=== PATIENT | female | born 1940 | race Caucasian/White ===

== ENCOUNTER 2017-06-11 11:02 | Observation (INO) ==
--- NOTE | 2017-06-11 11:29 | Emergency Department Report ---
General Adult HPI - General Chief complaint: Medical Emergency Stated complaint: High BP Time Seen by Provider: 06/11/17 11:28 Source: patient Mode of arrival: ambulatory - History of Present Illness HPI narrative: 77-year-old female presents to ER with complaint of elevated blood pressures. Patient states this morning she was at the store and could not remember why she had gone in there. The store called the police and follow patient home. Patient says when she arrived home she had pressures over 200/100. Patient was seen in our ER on 06-09-17 for elevated blood pressure. Patient says she was at the dentist that day and was schedule to have a tooth implant. Her BP was so elevated the dentist would not do implant and told her to go to the ER. Patient went home for a while and monitored her BP and then came to the ED. Patient was evaluated with EKG and laboratory. Patient was given 2 dose of labetalol IV which lower her pressure. She was sent home with Rx. for labetalol and has been taking it as directed. Patient denies fever, chills, SOB, cough, CP, nausea, vomiting, abdominal pain, headache, blurred vision, paresthesia, unilateral weakness or ataxia. Cisternal accompanies patient did not notice any facial droop or aphasia. Patient does not know why she is on Sotalol. Patient states she does not have a cutter gas. Onset (ago): hour(s) - Related Data Home Medications Medication Instructions Recorded Confirmed Calcium Carbonate [Calcium] 500 mg PO BID 06/09/17 06/11/17 Cyanocobalamin (Vitamin B-12) 2,500 mg SL DAILY 06/09/17 06/11/17 [Vitamin B-12] Ferrous Sulfate [Iron] 325 mg PO DAILY 06/09/17 06/11/17 Hydrocortisone [Hydrocortisone] 20 mg PO BID 06/09/17 06/11/17 Sotalol [Betapace] 80 mg PO BID 06/09/17 06/11/17 Alendronate Sodium [Alendronate 70 mg PO WEEKLY 06/11/17 06/11/17 Sodium] Fludrocortisone [Florinef] 0.05 mg PO DAILY 06/11/17 06/11/17 Levothyroxine Tab [Synthroid] 112 mcg PO ACB 06/11/17 06/11/17 Previous Rx's Medication Instructions Recorded Labetalol [Normodyne] 100 mg PO BID #60 tab 06/09/17 Allergies Allergy/AdvReac Type Severity Reaction Status Date / Time No Known Allergies Allergy Verified 06/11/17 11:26 Review of Systems All systems: reviewed and negative except as stated Neurological: Reports: as per HPI, confusion PFSH Patient Stated Medical History Other HEENT Yes: GLASSES Hypertension Yes Clinic Medical History (Last Reviewed 03/14/17 @ 08:34 by Montez Emerson MD) Osteoporosis (Chronic Medical ~2014) Adrenal insufficiency (Chronic Medical ~1976) Hypothyroidism (Chronic Medical ~1976) Slightly too much thyroid hormone replacement. Obesity (BMI 30-39.9) (Chronic Medical) Little weight loss. Medical History Updates: Clarence's disease Surgical History: Broke both arms Family History: Family History (Last Reviewed 03/14/17 @ 08:34 by Montez Emerson MD) Mother Lupus Sister Cancer [place]'s disease - Social History Smoking status: Never smoker Household members: spouse Physical Exam - General General appearance: alert, in no apparent distress - Normal Exams: Head:: Normocephalic without trauma Eyes:: Pupils are PERRLA w/ EOMI, No scleral icterus ENMT:: No facial trauma, nasal exudates, pharyngeal erythema Neck:: Full range of motion, without adenopathy, JVD Chest/Respirations:: Clear all hines, with good airflow, and symmetry bilaterally Cardiovascular:: Regular rate and rhythm Abdomen:: Bowel sounds positive, soft, non-tender, non-distended, no hepatosplenomegaly Musculoskeletal:: No tenderness, or deformity noted, all extremities Integumentary:: No rashes Neurological:: Patient is alert, and oriented, cranial nerves, motor/sensory/ cerebellar, exams w/o gross deficits, to observation Psychiatric:: Patient exhibits, appropriate attention, emotion and affect - ENT ENT exam: Present: mucous membranes moist - Neck Neck exam: Present: trachea midline - Skin Skin exam: Present: warm, dry - Expanded Neurological Exam Motor strength - LUE: 5/5 Motor strength - RUE: 5/5 Motor strength - LLE: 5/5 Motor strength - RLE: 5/5 Upper motor neuron exam: Absent bilaterally: pronator drift Course - Consultations Consultation #1: I discussed patient's HPI, PMH, labs, VS, EKG, head CT, exam finding and treatment in the ED with Dr. Thony waggoner's service. Dr. Carter will admit patient observation status. Vital Signs Temperature 99.3 F 06/11/17 11:15 Pulse Rate 68 06/11/17 11:15 Respiratory Rate 16 06/11/17 11:15 Blood Pressure 190/77 H 06/11/17 11:15 Pulse Oximetry 96 06/11/17 11:15 Temperature 99.0 F 06/12/17 07:16 Pulse Rate 66 06/12/17 07:42 Respiratory Rate 18 06/12/17 07:16 Blood Pressure 139/67 06/12/17 07:16 Pulse Oximetry 94 06/12/17 07:16 Medical Decision Making - [facility] Narrative Medical decision making narrative: Patient's labs were unremarkable on 06-09-16. Magnesium and TSH unremarkable today. Patient's BP has improved with 20mg of hydralazine IV. I discussed with patient that I felt she needed to be admitted for observation due to hypertension urgency with mental status changes. Patient agreed with plan of care. - Differential Diagnosis hypertension urgency, TIA, CVA, intercranial hemorrhage - Medical Records Medical records reviewed: Yes: I reviewed the patient's medical records. - Lab Data Result diagrams: 06/12/17 04:34 Lab Results 06/11/17 Range/Units 12:25 Magnesium 1.9 (1.6-2.3) MG/DL TSH 1.49 (0.47-4.68) MIU/L - Radiology Data Radiology results reviewed: Yes: I reviewed the patient's radiology results. CT head: no acute intracranial findings (V-RAD) - EKG Data EKG #1 EKG attestation: Yes: I reviewed and interpreted this EKG. Disposition Clinical Impression: Hypertensive urgency Mental status change Qualifiers: Altered mental status type: disorientation Qualified Code(s): R41.0 - Disorientation, unspecified Disposition: 02 To [facility] Condition: Improved - Seen By: midlevel
[2017-06-11] MEDS ORDERED: HYDRALAZINE 20 MG/ML INJECTION IVP ONE ×2 (11:52→13:11)
[2017-06-11 15:04] VITALS: BMI 29.3
--- NOTE | 2017-06-11 15:40 | History & Physical Report ---
History of Present Illness Date: 06/12/17 Chief complaint: High BP HPI: Ivon Schulz is a 77 y/o woman who has been seen in the ED twice since 06/09/17 for elevated BPs. On the , her BP on arrival was 230/103, HR 71. Labs were essentially unremarkable, with exception of minimally elevated Na (146) and bilirubin (1.3). In the ED on 06/09, she received Labetalol 20 mg IV x2 doses, which lowered her BP to a safe level and she was discharged home with Rx for Labetalol 100 mg BID. On 06/11/17, she again had high BPs, this time with associated mental status changes. She went to [employer] and forgot why she was there. She was also supposed to run to [employer] for her but couldn't recall what she needed. Police dept was notified and they followed her home for safety. On arrival, her checked her BP and it was approx 197/127. He did not notice any facial drooping, unilateral weakness, slurred speech, or other signs of a stroke. She denies any chest pain, dyspnea, diaphoresis, nausea , visual changes, paresthesias, or headaches during these times or currently. She also denies any recent illnesses such as fever, cough/congestion, abdominal upset or pain, v/d/c, or dysuria. She had urinary frequency b/c she drinks a lot of water. She admits currently to feeling very chilled and cold and is shaking despite being covered with several blankets. She sees Dr. Emerson for Clarence's and for hypothyroidism, and states that he recently decreased her Synthroid dose. Her took her to the ED again on 06/11, and initial BP was 207/86. She received hydralazine 10 mg x2 and 5 mg x1 and BP got down as low as 143/65. Labs on 06/11 included a TSH, which was normal at 1.49 and a magnesium, also normal at 1.9. Head CT was reportedly negative. EKG showed NSR. Ivon was admitted to observation status for hypertensive urgency. Review of Systems All systems PM: 10-point ROS was reviewed, no additional remarkable complaints except - Constitutional Constitutional: Present: as per HPI - EENMT Eyes: Present: as per HPI, requires corrective lenses Nose: Present: as per HPI Mouth/Throat: Absent: changes in swallowing - Cardiovascular Cardiovascular: Present: as per HPI. Absent: chest pain, palpitations, dyspnea on exertion, edema Rhythm: Absent: abnormal rhythm Vascular: Absent: pedal edema, unilateral swelling - Respiratory Respiratory: Present: as per HPI - Gastrointestinal Gastrointestinal: Present: as per HPI - Genitourinary Genitourinary: Present: urinary frequency (chronic - pt states she drinks a lot of water). Absent: dysuria - Musculoskeletal Musculoskeletal: Absent: muscle weakness - Integumentary/Breasts Integumentary: Present: wounds (had a spot on her lower back drained by Dr. Porter - healing nicely) - Neurological Neurological: Present: as per HPI - Psychiatric Psychiatric: Absent: anxiety, depression - Endocrine Endocrine: Present: as per HPI - Hematologic/Lymphatic Hematologic/Lymphatic: Absent: easy bleeding, easy bruising Past Medical History PAF in 2014 - not anticoagulated (Echo in 2014: EF 63%, mild MR, mild TR, moderate PH) HTN Moderate pulmonary HTN Steatohepatitis Gladwyne's disease Hypothyroidism History of Obesity (BMI 30-39.9) Osteoporosis Surgical History: breast biopsy. tubal ligation Family History: Family History Mother Lupus Sister Cancer Clarence's disease Family History Updates: Mother of complications from lupus at age 73. Her father of old age around 77 years. Her identical twin sister and only sister also had Gladwyne's disease. She from bone cancer at age 70. - Social History Smoking status: Never smoker Substance use type: does not use Alcohol intake frequency: does not drink Household members: spouse Social history: PCP: Dr. Porter Endocrine: Dr. Emerson Medications Home Medications Medication Instructions Recorded Confirmed Type Calcium Carbonate [Calcium] 500 mg PO BID 06/09/17 06/11/17 History Cyanocobalamin (Vitamin B-12) 2,500 mg SL DAILY 06/09/17 06/11/17 History [Vitamin B-12] Ferrous Sulfate [Iron] 325 mg PO DAILY 06/09/17 06/11/17 History Hydrocortisone [Hydrocortisone] 20 mg PO BID 06/09/17 06/11/17 History Sotalol [Betapace] 80 mg PO BID 06/09/17 06/11/17 History Alendronate Sodium [Alendronate 70 mg PO WEEKLY 06/11/17 06/11/17 History Sodium] Fludrocortisone [Florinef] 0.05 mg PO DAILY 06/11/17 06/11/17 History Levothyroxine Tab [Synthroid] 112 mcg PO ACB 06/11/17 06/11/17 History Allergies Allergy/AdvReac Type Severity Reaction Status Date / Time No Known Allergies Allergy Verified 06/11/17 11:26 Exam Vital Signs: Temperature 98.4 F 06/11/17 15:01 Pulse Rate 88 06/11/17 15:01 Respiratory Rate 18 06/11/17 15:01 Blood Pressure 169/75 H 06/11/17 15:01 Pulse Oximetry 97 06/11/17 15:01 Height/Weight/BMI: Height 1.65 m Weight 80.1 kg Body Mass Index 29.3 - Constitutional Present: no acute distress, well nourished, well developed - Routine HEENT Exam Head: Present: normocephalic Eye: Present: EOMI, PERRL. Absent: conjunctival icterus, scleral injection ENT: Present: mucous membranes moist, oropharynx clear - Routine Neck Exam Present: supple. Absent: lymphadenopathy - Routine Respiratory Exam Present: CTA bilaterally - Routine Cardiovascular Exam Present: RRR, S1, S2 - Routine Abdominal Exam Present: soft, normoactive bowel sounds, non distended, non tender - Routine Extremities Exam Present: no edema, pulses intact, normal capillary refill. Absent: calf tenderness - Routine Back/Spine/Pelvis Exam Back/Spine: Present: full ROM - Routine Skin Exam Present: intact, dry, warm, wounds (healing wound to lower back), ecchymosis ( left forearm from recent lab stick) - Routine Neurological Exam Present: alert, oriented X3, CN II-XII intact, moving all extremities, vision grossly intact, hearing grossly intact, normal speech. 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 Dr. Bhandari attending. Start telemetry. Start Lisinopril 10 mg daily. Hydralazine 10 mg IV PRN for BP >180/90. Continue Sotalol. Continue hydrocortisone and fludrocortisone for Gladwyne's. Fludrocortisone likely contributor to HTN but d/t Gladwyne's disease we cannot discontinue. Continue home meds. Patient does not see a customer resource specialist on a regular basis. Labs from 06/09 and again today were stable. Advanced directives: Spouse/son are listed as DPOAs; +living will; full code. DVT Prophylaxis: SCD's Resuscitation Status: Full Code - Physician Narrative Physician: Cuca Bhandari MD Narrative: Date: 06/11/17 Time: 1814 Thony MARTINEZ Ms. Schulz was interviewed and examined by me. She still has a bit of word finding difficulty. What she says without slurring but she is having trouble communicating what she wants to say. I asked her if she just couldn't remember what the words were or if she's unable to speak those words and she says she's having trouble remembering what the words are. There is no facial drooping. She has equal strength in the bilateral upper and lower extremities. Finger to nose is accurate. Unable to understand instructions to touch each finger to thumb, she does all four fingers at once. Heel to rosen okay but slow. No visual deficits. She denies any shortness of breath, cough or sputum production. She denies chest pain or pressure. She denies palpitations. She has no headache. She denies nausea or vomiting. She denies abdominal pain. She reports no problems and swallowing. She reports her bowels are moving fine and she is urinating fine in fact frequently states she drinks a lot of water. She denies problems with lower extremity edema. PE: Gen: alert and oriented. NAD Skin: warm and dry HEENT: NC/AT PERRL, EOMI, Sclera, lids and conjunctiva wnl. MMM. OP clear. Neck: No JVD, Carotids 2+ without bruits Lungs: clear. No rales, rhonchi or wheezes CV: regular. 2/6 murmur Abd: soft. +BS. NT/ND MS: No edema. Good strength and ROM Neuro: No focal deficits except as noted above. Assessment and plan: 1. Possible TIA versus stroke -MRI tomorrow -carotid Doppler -echocardiogram -telemetry -aspirin and Statin -consult speech and physical therapy -Neuro checks 2. History of paroxysmal atrial fibrillation -on sotalol -she is an sinus rhythm but this is certainly concerning when there are symptoms of possible stroke or TIA. -He may have to consider anticoagulation but certainly not yet with the acute episode. -Place her on telemetry 3. Hypertension with hypertensive urgency -follow blood pressures 4. 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 Prophylaxis -SCD's I have reviewed her labs, notes and imaging. I have discussed patient with Addie SALAZAR and agree with assessment and plan with the above changes. Hospital Course Summary Disclaimer: The visit summary below is not to be considered part of the above Progress Note. Hospital Course: 06/11/17 Admit, observation status for hypertensive urgency. Dr. Bhandari attending. Start telemetry. Start Lisinopril 10 mg daily. Hydralazine 10 mg IV PRN for BP >180/90. Continue Sotalol. Continue hydrocortisone and fludrocortisone for Gladwyne's. Fludrocortisone likely contributor to HTN but d/t Gladwyne's disease we cannot discontinue. Continue home meds. Patient does not see a customer resource specialist on a regular basis. Labs from 06/09 and again today were stable. Advanced directives: Spouse/son are listed as DPOAs; +living will; full code.
[2017-06-11] MEDS ORDERED: HYDRALAZINE 20 MG/ML INJECTION IVP PRN (15:45)
[2017-06-11] MEDS: LISINOPRIL 10 MG TABLET PO SCH (16:42)
[2017-06-11] MEDS: HYDROCORTISONE 20 MG PO SCH ×2 (18:31→19:57)
[2017-06-11] MEDS: SOTALOL 80 MG PO SCH (19:57)
[2017-06-11] MEDS: CALCIUM CARBONATE 500 MG PO SCH (22:05)
[2017-06-12] MEDS: SOTALOL 80 MG PO SCH ×2 (05:44→21:08)
[2017-06-12] MEDS: LEVOTHYROXINE 112 MCG PO SCH (05:44)
[2017-06-12] MEDS: FERROUS SULFATE 324 MG PO SCH (08:37)
[2017-06-12] MEDS: HYDROCORTISONE 20 MG PO SCH ×2 (08:38→18:36)
[2017-06-12] MEDS: CALCIUM CARBONATE 500 MG PO SCH ×2 (08:38→21:09)
[2017-06-12] MEDS: LISINOPRIL 10 MG TABLET PO SCH (08:39)
[2017-06-12] MEDS: FLUDROCORTISONE 0.1 MG PO SCH (08:39)
[2017-06-12] MEDS: VITAMIN B12 1000 MCG PO SCH (08:40)
[2017-06-12] MEDS ORDERED: CYANOCOBALAMIN (B-12) 500mcg TABLET PO SCH (09:00)
--- NOTE | 2017-06-12 09:18 | CT Scan Report ---
Indication: confusion PROCEDURE: CT head/brain wo con: Encounter: Initial Comparison: May 31, 2013 Technique: Axial CT images through the head were performed without contrast. Iterative Reconstruction dose reducing technique was utilized. FINDINGS: Mild atrophy. The ventricles are of normal size, shape, and contour for the patient's age. There are scattered areas of low attenuation in the white matter which most likely represent changes from chronic microvascular ischemia. The brainstem, cerebellum, and cerebral hemispheres otherwise have a normal morphology and CT attenuation. There is no evidence of midline displacement. No hemorrhage, signs of acute territorial stroke, mass effect, mass lesions, or edema is evident. The visualized portions of the skull base, midface, and calvarium demonstrate no abnormality. Mild sinus disease. The tympanic and mastoid cavities appear normal. IMPRESSION: No acute intracranial abnormality or hemorrhage. There is a preliminary report by [facility]. .
--- NOTE | 2017-06-12 10:29 | Progress Note ---
- Date 06/12/17 Subjective: Ivon Schulz is a 77 y/o woman who has been seen in the ED twice since 06/09/17 for elevated BPs. On the , her BP on arrival was 230/103, HR 71. Labs were essentially unremarkable, with exception of minimally elevated Na (146) and bilirubin (1.3). In the ED on 06/09, she received Labetalol 20 mg IV x2 doses, which lowered her BP to a safe level and she was discharged home with Rx for Labetalol 100 mg BID. On 06/11/17, she again had high BPs, this time with associated mental status changes. She went to [employer] and forgot why she was there. She was also supposed to run to [employer] for her but couldn't recall what she needed. Police dept was notified and they followed her home for safety. On arrival, her checked her BP and it was approx 197/127. He did not notice any facial drooping, unilateral weakness, slurred speech, or other signs of a stroke. She denies any chest pain, dyspnea, diaphoresis, nausea , visual changes, paresthesias, or headaches during these times or currently. She also denies any recent illnesses such as fever, cough/congestion, abdominal upset or pain, v/d/c, or dysuria. She had urinary frequency b/c she drinks a lot of water. She admits currently to feeling very chilled and cold and is shaking despite being covered with several blankets. She sees Dr. Emerson for Clarence's and for hypothyroidism, and states that he recently decreased her Synthroid dose. Her took her to the ED again on 06/11, and initial BP was 207/86. She received hydralazine 10 mg x2 and 5 mg x1 and BP got down as low as 143/65. Labs on 06/11 included a TSH, which was normal at 1.49 and a magnesium, also normal at 1.9. Head CT was reportedly negative. EKG showed NSR. Ivon was admitted to observation status for hypertensive urgency. There is no facial drooping. She has equal strength in the bilateral upper and lower extremities. Finger to nose is accurate. Unable to understand instructions to touch each finger to thumb, she does all four fingers at once. Heel to rosen okay but slow. No visual deficits. She denies any shortness of breath, cough or sputum production. She denies chest pain or pressure. She denies palpitations. She has no headache. She denies nausea or vomiting. She denies abdominal pain. She reports no problems and swallowing. She reports her bowels are moving fine and she is urinating fine in fact frequently states she drinks a lot of water. She denies problems with lower extremity edema. This morning she is doing a little better. She is able to do each finger to thumb bilaterally. She can recall what they're supposed to do to her tooth in the near future which she couldn't recall yesterday. She did have a little trouble remembering its May but had no problem with the date or year. She did have nausea with vomiting last evening. She does not feel nauseated at present. Her blood pressures are reasonable today. She denies headache, lightheadedness or dizziness. She denies any visual changes. She denies being short of breath. No cough or sputum production. She denies chest pain or pressure. She denies palpitations. She has not had a bowel movement since Tuesday. She is passing gas. She urinating without difficulty. Objective Vital signs: Temperature 99.0 F 06/12/17 07:16 Pulse Rate 66 06/12/17 07:42 Respiratory Rate 18 06/12/17 07:16 Blood Pressure 139/67 06/12/17 07:16 Pulse Oximetry 94 06/12/17 07:16 Height/Weight/BMI: Height 1.65 m Weight 79.9 kg Body Mass Index 29.3 Comments: Gen: alert and oriented. NAD Skin: warm and dry HEENT: NC/AT PERRL, EOMI, Sclera, lids and conjunctiva wnl. MMM. OP clear. Neck: No JVD, Carotids 2+ without bruits Lungs: clear. No rales, rhonchi or wheezes CV: regular. 2/6 murmur. Abd: soft. +BS. NT/ND MS: No edema. Good strength and ROM Neuro: No focal deficits Results - Labs CBC & Chem 7: 06/12/17 04:34 Assessment and Plan (1) Hypertensive urgency Current visit: Yes Status: Acute Assessment and Plan: Assessment and plan: 1. Possible TIA versus stroke -MRI ordered for today -carotid Doppler in am -echocardiogram in am -telemetry -aspirin and Statin -consult speech and physical therapy -Improved symptoms today 2. History of paroxysmal atrial fibrillation -on sotalol -she is an sinus rhythm but this is certainly concerning when there are symptoms of possible stroke or TIA. -He may have to consider anticoagulation but certainly not yet with the acute episode. -Place her on telemetry 3. Hypertension with hypertensive urgency -follow blood pressures 4. [place]'s disease -on fludrocortisone and hydrocortisone likely attributing to her hypertension 5. N/V -Add PPI -add antiemetics 6. Hypokalemia -Replace and recheck 7. Prophylaxis -SCD's - Physician Narrative Narrative: Date: 06/12/17 Time: 1025 Hospital Course Summary Disclaimer: The visit summary below is not to be considered part of the above Progress Note. Hospital Course: 06/11/17 Admit, observation status for hypertensive urgency. Dr. Bhandari attending. Start telemetry. Start Lisinopril 10 mg daily. Hydralazine 10 mg IV PRN for BP >180/90. Continue Sotalol. Continue hydrocortisone and fludrocortisone for Clarence's. Fludrocortisone likely contributor to HTN but d/t Estill's disease we cannot discontinue. Continue home meds. Patient does not see a reed dipper on a regular basis. Labs from 06/09 and again today were stable. Advanced directives: Spouse/son are listed as DPOAs; +living will; full code.
[2017-06-12] MEDS: HYDROCORTISONE 20 MG TABLET PO SCH (21:09)
--- NOTE | 2017-06-12 22:14 | Magnetic Resonance Report ---
Indication: TIA/STROKE PROCEDURE: MR head/brain wo con: Encounter: Initial Comparisons: Head CT dated June 11, 2017 and brain MRI dated June 11, 2013 Technique: Multiplanar, multisequence, MR imaging of the head without contrast was acquired. FINDINGS: Mild generalized atrophy. The ventricles are stable. Significant interval progression in periventricular white matter disease since the comparison MRI, most pronounced in the periatrial parietal white matter bilaterally. The brain stem, cerebellum, and cerebral hemispheres otherwise have a normal morphologic appearance as well as MR signal intensity on all pulse sequences. There are no areas of restricted diffusion on diffusion weighted imaging to suggest an acute infarct. There is no evidence of an intracranial mass lesion, intracranial hemorrhage, or hydrocephalus. The visualized portions of the orbits, calvarium, paranasal sinuses, and skull base demonstrate no significant abnormality. IMPRESSION: No acute intracranial hemorrhage or infarct. 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 .
[2017-06-13] MEDS: LEVOTHYROXINE 112 MCG PO SCH (06:36)
[2017-06-13] MEDS: SOTALOL 80 MG PO SCH (06:36)
[2017-06-13] MEDS: FERROUS SULFATE 324 MG PO SCH (09:42)
[2017-06-13] MEDS: CALCIUM CARBONATE 500 MG PO SCH (09:42)
[2017-06-13] MEDS: FLUDROCORTISONE 0.1 MG PO SCH (09:45)
[2017-06-13] MEDS: HYDROCORTISONE 20 MG TABLET PO SCH (09:45)
[2017-06-13] MEDS: VITAMIN B12 1000 MCG PO SCH (09:48)
[2017-06-13] MEDS: LISINOPRIL 10 MG TABLET PO SCH (09:53)
--- NOTE | 2017-06-13 14:33 | Ultrasound Report ---
EXAM: US carotid doppler BI LOCATION OF DICTATION: [place] HISTORY: TIA/Stroke symptoms COMPARISON: No prior studies available for comparison. TECHNIQUE: Multiple real-time grayscale sonographic images were obtained of the carotid arteries bilaterally with color flow and spectral analysis. Peak systolic velocities are measured in centimeters per second. FINDINGS: Velocities are as follows: RIGHT CAROTID SYSTEM: CCA: 108 cm/S Proximal ICA: 91 cm/S Mid ICA: 106 cm/S Distal ICA: 98.8 cm/S ECA: 101 cm/S Vertebral: Antegrade ICA/CCA ratio: 1.0 LEFT CAROTID SYSTEM: CCA: 113 cm/S Proximal ICA: 162 cm/S Mid ICA: 130 cm/S Distal ICA: 136 cm/S ECA: 114 cm/S Vertebral: Antegrade ICA/CCA ratio: 1.4 Mild atherosclerotic disease bilaterally. IMPRESSION: Mild left atherosclerotic disease bilaterally with slightly increased velocity in the left internal carotid artery correlating with 50-69% narrowing. Follow-up carotid ultrasound one year could be obtained to reevaluate. .
[2017-06-13 14:59] VITALS: BP 141/68; RESP 17; TEMP 95.7; O2SAT 95
--- NOTE | 2017-06-13 15:28 | Discharge Summary ---
Discharge Information Date of admission: 06/11/17 14:43 Anticipated date of discharge: 06/13/17 Attending Physician: Simi Foss MD Primary care physician: Leslie Porter, DO - Discharge Diagnosis (1) Hypertensive urgency Status: Resolved Possible TIA History of paroxysmal atrial fibrillation Carotid artery disease Hypertension with hypertensive urgency Wayland's disease N/V - resolved Hypokalemia - resolved - Laboratory Labs: 06/13/17 03:59 06/13/17 03:59 - Radiology Radiology: HEAD CT FINDINGS: Mild atrophy. The ventricles are of normal size, shape, and contour for the patient's age. There are scattered areas of low attenuation in the white matter which most likely represent changes from chronic microvascular ischemia. The brainstem, cerebellum, and cerebral hemispheres otherwise have a normal morphology and CT attenuation. There is no evidence of midline displacement. No hemorrhage, signs of acute territorial stroke, mass effect, mass lesions, or edema is evident. The visualized portions of the skull base, midface, and calvarium demonstrate no abnormality. Mild sinus disease. The tympanic and mastoid cavities appear normal. IMPRESSION: No acute intracranial abnormality or hemorrhage. BRAIN MRI FINDINGS: Mild generalized atrophy. The ventricles are stable. Significant interval progression in periventricular white matter disease since the comparison MRI, most pronounced in the periatrial parietal white matter bilaterally. The brain stem, cerebellum, and cerebral hemispheres otherwise have a normal morphologic appearance as well as MR signal intensity on all pulse sequences. There are no areas of restricted diffusion on diffusion weighted imaging to suggest an acute infarct. There is no evidence of an intracranial mass lesion, intracranial hemorrhage, or hydrocephalus. The visualized portions of the orbits, calvarium, paranasal sinuses, and skull base demonstrate no significant abnormality. IMPRESSION: No acute intracranial hemorrhage or infarct. 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 CAROTID DOPPLER IMPRESSION: Mild left atherosclerotic disease bilaterally with slightly Increased velocity in the left internal carotid artery correlating with 50-69% narrowing. Follow-up carotid ultrasound one year could be obtained to reevaluate. History of Present Illness HPI: Ivon Schulz is a 77 y/o woman who has been seen in the ED twice since 06/09/17 for elevated BPs. On the , her BP on arrival was 230/103, HR 71. Labs were essentially unremarkable, with exception of minimally elevated Na (146) and bilirubin (1.3). In the ED on 06/09, she received Labetalol 20 mg IV x2 doses, which lowered her BP to a safe level and she was discharged home with Rx for Labetalol 100 mg BID. On 06/11/17, she again had high BPs, this time with associated mental status changes. She went to [facility] and forgot why she was there. She was also supposed to run to [facility] for her but couldn't recall what she needed. Police dept was notified and they followed her home for safety. On arrival, her checked her BP and it was approx 197/127. He did not notice any facial drooping, unilateral weakness, slurred speech, or other signs of a stroke. She denies any chest pain, dyspnea, diaphoresis, nausea , visual changes, paresthesias, or headaches during these times or currently. She also denies any recent illnesses such as fever, cough/congestion, abdominal upset or pain, v/d/c, or dysuria. She had urinary frequency b/c she drinks a lot of water. She admits currently to feeling very chilled and cold and is shaking despite being covered with several blankets. She sees Dr. Emerson for Wayland's and for hypothyroidism, and states that he recently decreased her Synthroid dose. Her took her to the ED again on 06/11, and initial BP was 207/86. She received hydralazine 10 mg x2 and 5 mg x1 and BP got down as low as 143/65. Labs on 06/11 included a TSH, which was normal at 1.49 and a magnesium, also normal at 1.9. Head CT was reportedly negative. EKG showed NSR. Ivon was admitted to observation status for hypertensive urgency. Objective Vital signs: Temperature 95.7 F L 06/13/17 14:56 Pulse Rate 70 06/13/17 14:56 Respiratory Rate 17 06/13/17 14:56 Blood Pressure 141/68 H 06/13/17 14:56 Pulse Oximetry 95 06/13/17 14:56 Height/Weight/BMI: Height 1.65 m Weight 80 kg Body Mass Index 29.3 - Constitutional Present: no acute distress, well nourished, well developed - Routine HEENT Exam Head: Present: normocephalic Eye: Present: PERRL. Absent: conjunctival icterus, scleral injection ENT: Present: mucous membranes moist - Routine Respiratory Exam Present: CTA bilaterally - Routine Cardiovascular Exam Present: RRR, S1, S2 - Routine Abdominal Exam Present: soft, normoactive bowel sounds, non distended, non tender - Routine Extremities Exam Present: no edema, pulses intact - Routine Musculoskeletal Exam Musculoskeletal: Present: moving extremities well - Routine Skin Exam Present: intact, dry, warm - Routine Neurological Exam Present: alert, oriented X3, CN II-XII intact, normal speech mild tremor noted to mandible/head - pt reports this is chronic and d/t hypothyroidism - Routine Psychiatric Exam Present: normal affect, normal thought process, cooperative Hospital Course This is a general summary of the patient's hospital course. For more details refer to the complete medical record. Hospital course: Mrs. Schulz was admitted on 06/11/16 for hypertensive urgency and possible TIA versus stroke. She received hydralazine IV in the ED and was started on Lisinopril 10 mg daily. She required IV hydralazine when BP >180/90 once on 06/12 ; but overall her BPs improved. She was started on ASA and a statin and stroke workup was obtained. MRI was negative for acute stroke. Carotid dopplers revealed mild disease. She has a history of PAF, but remained in sinus while hospitalized. One could argue for full anticoagulation, but would first recommend f/u with cardiology first. Pt's spouse sees Dr. Reno, and would recommend f/u with him in the next 2 weeks. She was evaluated by speech and PT/ OT. She did well with speech and aphasia evaluation and skilled ST was not recommended. Likewise, she did well with PT and home health or outpatient services were not felt necessary. Her labs remained stable except for 1-day of mild hypokalemia which was corrected prior to discharge. By day of discharge, her BP was 141/68. Will provide Rx for Lisinopril 10 mg daily. She has a f/u appt already scheduled for 06/20/[address] Porter. Lipid panel was still pending at time of dismissal, and given her carotid doppler report she may benefit from a long-term statin. She was discharged home in stable condition with her . Time spent with patient: discharge greater than 30 minutes Resuscitation Status: Full Code Discharge Plan - Discharge Disposition Discharge Date: 06/13/17 Disposition: 01 Discharged Home, Self-Care *Condition: Improved Reason For Visit (Visit label in EMR): hypertension urgency, mental status change - Discharge Medications *Discharge Medications: New Lisinopril [Prinivil] 10 mg PO DAILY #30 tab Continue Cyanocobalamin (Vitamin B-12) [Vitamin B-12] 2,500 mg SL DAILY Calcium Carbonate [Calcium] 500 mg PO BID Hydrocortisone 20 mg PO BID Ferrous Sulfate [Iron] 325 mg PO DAILY Labetalol [Normodyne] 100 mg PO BID #60 tab Alendronate Sodium 70 mg PO WEEKLY Fludrocortisone [Florinef] 0.05 mg PO DAILY Sotalol [Betapace] 80 mg PO BID Levothyroxine Tab [Synthroid] 112 mcg PO ACB - Discharge Packet/Instructions *Diet: Heart-healthy *Activity: No restrictions. SPEECH STRATEGIES: SLOW RATE, SPEAK LOUDER, LIMIT WITH FATIGUE, "VOCAL NAPS" *Pain Management/Treatment: Tylenol if needed *Wound Care: Not applicable Additional Instructions: Monitor and record blood pressure 2 hours after taking BP meds in the morning. *Expected Signs/Symptoms: You should see a gradual reduction then stabilization in BP readings. *Notify Physician if: Uncontrolled BP, headache, stroke-like symptoms, chest pain or shortness of breath, passing out, confusion or any new concerns. *During Business Hours Contact: Dr. Porter' office at [facility]. *After Business Hours Contact: The on-call provider for Dr. Porter. *Pending Lab/Results: Follow up w/your PCP (Lipid panel still pending.) - Referrals/Follow Up *Referrals/Follow Up: Dejon Rodrigues MD [Physician] - (please call for new-patient appt. CALL DR. RODRIGUES OFFICE AND SCHEDULE APPOINTMENT --OFFICE NUMBER [phone]) Leslie Porter DO [Family Provider] - 1 Week (FOLLOW UP APPOINTMENT WITH DR. PORTER ON 06/20/2017 AT 1:20 PM, CHECK IN AT 1:05 PM OFFICE NUMBER [phone]) - Patient Handouts - Dismissal Complete Discharge Instructions are:: Complete Physician Narrative - Narrative Physician: Simi Foss MD Attestation Narrative: Date: 06/13/17 Time: 10:45 PM The patient was seen earlier today in the late afternoon. I reviewed this chart, the patient history, and the SOIL ANALYST's/PA's documented findings as above. We discussed and formulated the assessment and plan as above with the additions below.-Dr. Foss The patient was seen earlier today accompanied by her and son. She states she is feeling better. She is eating and drinking well. She has had no further confusion. Blood pressure is much better controlled. She is not having any lightheadedness. She is alert and oriented 3. Speech is normal. Chest is clear to auscultation. Cardiovascular reveals a regular rate and rhythm. Abdomen is soft and nontender. Extremities are free of edema. MRI brain fortunately showed no acute stroke. The patient's encephalopathy has completely resolved with normalization of blood pressure. It's possible she simply had hypertensive encephalopathy. She does have history of paroxysmal atrial fibrillation. She would likely benefit from following up with cardiology as an outpatient and consider cardiac monitoring to see if she is having intermittent atrial fibrillation. We'll dismiss to home today with plans for close follow-up. The patient is not to drive until she follows up with her primary care physician.
[2017-06-13 20:39] VITALS: PULSE 67
--- NOTE | 2017-06-14 08:58 | Echocardiogram ---
DATE OF PROCEDURE June 13, 2017 This is a two-dimensional echo with spectral Doppler, color-flow and M-mode. It was obtained in a patient with TIA and stroke. Left atrium is dilated. Left ventricular end-diastolic dimension is normal. Left ventricle wall thickness is normal. LV systolic function is normal with ejection fraction of 64%. Right atrium is normal. Right ventricle is normal. Aortic root dimension is normal. Mitral valve is morphologically normal with mild mitral regurgitation. Aortic valve is a trileaflet structure with no stenosis or insufficiency. Tricuspid valve shows moderate tricuspid regurgitation with mild pulmonary hypertension with estimated pulmonary artery systolic pressure of 40. Pulmonary valve shows mild pulmonary insufficiency. There is no pericardial effusion. Grossly there is no intracardiac thrombus or mass. IMPRESSION 1. Normal LV systolic function with ejection fraction of about 64%. 2. Grossly no intracardiac thrombus or mass. 3. Left atrial dilation. 4. Mild mitral regurgitation. 5. Moderate tricuspid regurgitation with mild pulmonary hypertension with estimated pulmonary artery systolic pressure of 40. 6. Mild pulmonary insufficiency. MTDD
== END 2017-06-13 19:35 | disposition home or self-care (01) ==
LOC: MED 11:02 → ED 11:02 → SUATTDRO 14:43 → MED 14:55
PROVIDERS: ADMIT Internal Medicine Cardiovascular Disease; ATTEND Internal Medicine

== ENCOUNTER 2017-06-13 23:31 | Inpatient (IN) ==
[2017-06-13] MEDS ORDERED: SALINE FLUSH 10ml SYRINGE IVF PRN (23:48)
--- NOTE | 2017-06-13 23:50 | Emergency Department Report ---
General Adult HPI - General Stated complaint: dizziness, slight slurring Time Seen by Provider: 06/13/17 23:48 Source: patient, family, EMS Mode of arrival: EMS Limitations: no limitations - History of Present Illness HPI narrative: 77-year-old female presents the emergency department with the chief complaint of feeling dizzy, potential slurring of her speech a potential left-sided facial droop. This occurred at home prior to arrival to the emergency department today. Exact time of onset is unknown. Patient denies any pain or discomfort. Patient symptoms have resolved upon arrival to the emergency department. She is asymptomatic at time of arrival. Patient has no complaints or associated symptoms at this time. Symptoms resolved without intervention. - Related Data Home Medications Medication Instructions Recorded Confirmed Calcium Carbonate [Calcium] 500 mg PO BID 06/09/17 06/14/17 Cyanocobalamin (Vitamin B-12) 2,500 mg SL DAILY 06/09/17 06/14/17 [Vitamin B-12] Ferrous Sulfate [Iron] 325 mg PO DAILY 06/09/17 06/14/17 Hydrocortisone 20 mg PO BID 06/09/17 06/14/17 Sotalol [Betapace] 80 mg PO BID 06/09/17 06/14/17 Alendronate Sodium 70 mg PO WEEKLY 06/11/17 06/14/17 Fludrocortisone [Florinef] 0.05 mg PO DAILY 06/11/17 06/14/17 Levothyroxine Tab [Synthroid] 112 mcg PO ACB 06/11/17 06/14/17 Previous Rx's Medication Instructions Recorded Labetalol [Normodyne] 100 mg PO BID #60 tab 06/09/17 Lisinopril [Prinivil] 10 mg PO DAILY #30 tab 06/13/17 Allergies Allergy/AdvReac Type Severity Reaction Status Date / Time No Known Allergies Allergy Verified 06/14/17 00:43 Review of Systems Constitutional: Denies: fever, chills Eyes: Denies: eye pain, vision change ENT: Denies: ear pain, throat pain Cardiovascular: Denies: chest pain, palpitations Respiratory: Denies: cough, dyspnea Gastrointestinal: Denies: abdominal pain, nausea, vomiting, diarrhea Genitourinary: Denies: urgency, dysuria Musculoskeletal: Denies: back pain, arthralgia Integumentary: Denies: erythema, rash Neurological: Denies: headache, numbness Psychiatric: Denies: anxiety, depression Endocrine: Denies: fatigue, heat or cold intolerance Hematological/Lymphatic: Denies: easy bruising, lymphadenopathy Allergic/Immunologic: Denies: facial swelling, urticaria PFSH Patient Stated Medical History Transient Ischemic Attacks ( Yes TIA) Other HEENT Yes: GLASSES Hypertension Yes Clinic Medical History (Last Reviewed 03/14/17 @ 08:34 by Montez Emerson MD) Osteoporosis (Chronic Medical ~2014) Adrenal insufficiency (Chronic Medical ~1976) Hypothyroidism (Chronic Medical ~1976) Slightly too much thyroid hormone replacement. Obesity (BMI 30-39.9) (Chronic Medical) Little weight loss. Medical History Updates: Sunnyvale's disease Surgical History: Broke both arms Family History: Family History (Last Reviewed 03/14/17 @ 08:34 by Montez Emerson MD) Mother Lupus Sister Cancer Sunnyvale's disease - Social History Smoking status: Never smoker Substance use type: does not use Alcohol intake frequency: does not drink Current residence: Apartment/Private Home Physical Exam - Limitations Limitations: no limitations - General General appearance: alert, in no apparent distress - Normal Exams: Head:: Normocephalic without trauma Eyes:: Pupils are PERRLA w/ EOMI, No scleral icterus, irritation, or foreign bodies noted ENMT:: No facial trauma, nasal exudates, pharyngeal erythema, or exudates are noted Dental: No fractured, loose, or missing teeth noted Neck:: Full range of motion, without adenopathy, JVD, bruits or thyromegaly Chest/Respirations:: Clear all hines, with good airflow, and symmetry bilaterally Cardiovascular:: Regular rate and rhythm, without murmur or gallop, Pulses 2+ all extremities, capillary refill, <2 seconds all extremities Abdomen:: Bowel sounds positive, soft, non-tender, non-distended, no hepatosplenomegaly, masses or bruits noted Lymphatic:: No lymphadenopathy, or lymphedema noted Musculoskeletal:: No tenderness, or deformity noted, good range of motion, all extremities Integumentary:: No rashes, hives, or bruising noted, hair and nails, without abnormality Neurological:: Patient is alert (alert and oriented 3. CN 2-12 intact. Normal Sensation. Normal motor. Normal gait. Normal speech. Normal strength. Normal coordination. Reflexes 2/4 in all extremities. Absent Babinski bilaterally. No focal neurologic deficit. Unremarkable neurologic exam.), and oriented, cranial nerves, motor/sensory/cerebellar, exams w/o gross deficits, to observation Psychiatric:: Patient exhibits, appropriate attention, emotion and affect Course Vital Signs Temperature 98.7 F 06/13/17 23:31 Pulse Rate 113 H 06/13/17 23:31 Respiratory Rate 20 06/13/17 23:31 Blood Pressure 210/90 H 06/13/17 23:31 Pulse Oximetry 95 06/13/17 23:31 Temperature 96.1 F L 06/14/17 01:40 Pulse Rate 106 H 06/14/17 01:41 Respiratory Rate 12 06/14/17 01:40 Blood Pressure 164/71 H 06/14/17 01:40 Pulse Oximetry 98 06/14/17 01:40 Medical Decision Making - [facility] Narrative Medical decision making narrative: Labs / imaging were discussed in detail with the patient and family and questions are answered. She is given 324 mg of aspirin by mouth times one. She is given 500 mL normal saline intravenously times one. Patient is discussed with the hospitalist Dr. Strauss and will be admitted to his service in improved condition. Patient and family are in agreement with the current plan of management. No further orders from accepting physician who is in agreement with the current plan of management. Patient was not a candidate for TPA as her NIH is 0 and no confirmed ischemic stroke is present. Dr. Strauss will make his own neurology / cardiology consultations. - Differential Diagnosis CVA, TIA, UTI, metabolic disorder - Lab Data Result diagrams: 06/13/17 23:49 06/13/17 23:49 Lab Results 06/13/17 06/13/17 06/13/17 Range/Units 23:48 23:49 23:49 WBC 8.6 (4.5-11.0) T/MM3 RBC 4.86 (4.00-5.20) M/MM3 Hgb 14.6 D (12-16) GM/DL Hct 44.6 (36-46) % MCV 91.8 (80-100) UM3 MCH 30.0 (26-34) UUG MCHC 32.7 (31-37) GM/DL RDW Std Deviation 46.1 (36.9-50.2) FL Plt Count 173 (130-400) T/MM3 MPV 11.7 (9.4-12.4) UM3 Immature Gran % (Auto) 0.3 (0.0-0.5) % Neut % (Auto) 43.3 (33-66) % Lymph % (Auto) 40.2 (23-45) % [place] % (Auto) 13.0 H (0-9.0) % Eos % (Auto) 2.9 (0-4) % Baso % (Auto) 0.3 (0-2) % Neut # (Auto) 3.7 (1.8-7.7) T/MM3 Lymph # (Auto) 3.5 (1-4.8) T/MM3 [place] # (Auto) 1.1 H (0-0.8) T/MM3 Eos # (Auto) 0.3 (0-0.5) T/MM3 Baso # (Auto) 0.0 (0-0.2) T/MM3 Abs Immat Gran (auto) 0.03 (0.00-0.03) T/MM3 INR (0.99-1.21) APTT (24-36) SEC Turbidity (0-20) Sodium (134-144) MEQ/L Potassium (3.6-5) MEQ/L Chloride (98-107) MEQ/L Carbon Dioxide (22-30) MEQ/L Anion Gap (5-15) MEQ/L BUN (7-17) MG/DL Creatinine (0.7-1.2) MG/DL GFR Calculation BUN/Creatinine Ratio (6-26) RATIO Glucose (65-110) MG/DL Glucometer 104 (65-110) mg/dL Calculated Osmolality (261-280) MOSM/KG Calcium (8.4-10.2) MG/DL Total Bilirubin (0.20-1.30) MG/DL Icterus Index (0-7) AST (14-36) U/L ALT (9-52) U/L Alkaline Phosphatase (38-126) U/L Troponin I (0-0.12) ng/ml Total Protein (6.3-8.2) G/DL Albumin (3.5-5.0) G/DL Globulin (2.4-3.6) G/DL Albumin/Globulin Ratio (1.1-2.2) RATIO Specimen Hemolysis (0-25) Ur Collection Type Urine, void-cc/notcc Urine Color Yellow (YELLOW) Urine Clarity Clear Urine pH 5.5 (5.0-8.0) Ur Specific [place] <=1.005 L (1.015-1.025) Urine Protein Negative (NEGATIVE) Urine Glucose (UA) Negative (NEGATIVE) Urine Ketones Negative (NEGATIVE) Urine Occult Blood Negative (NEGATIVE) Urine Nitrate Negative (NEGATIVE) Urine Bilirubin Negative (NEGATIVE) Urine Urobilinogen 0.2 (NORMAL) EU/DL Ur Leukocyte Esterase Negative (NEGATIVE) Urinalysis Comment Microscopic not ind. 06/13/17 06/13/17 Range/Units 23:49 23:49 WBC (4.5-11.0) T/MM3 RBC (4.00-5.20) M/MM3 Hgb (12-16) GM/DL Hct (36-46) % MCV (80-100) UM3 MCH (26-34) UUG MCHC (31-37) GM/DL RDW Std Deviation (36.9-50.2) FL Plt Count (130-400) T/MM3 MPV (9.4-12.4) UM3 Immature Gran % (Auto) (0.0-0.5) % Neut % (Auto) (33-66) % Lymph % (Auto) (23-45) % [place] % (Auto) (0-9.0) % Eos % (Auto) (0-4) % Baso % (Auto) (0-2) % Neut # (Auto) (1.8-7.7) T/MM3 Lymph # (Auto) (1-4.8) T/MM3 [place] # (Auto) (0-0.8) T/MM3 Eos # (Auto) (0-0.5) T/MM3 Baso # (Auto) (0-0.2) T/MM3 Abs Immat Gran (auto) (0.00-0.03) T/MM3 INR 1.17 (0.99-1.21) APTT 29.0 (24-36) SEC Turbidity < 20 (0-20) Sodium 140 (134-144) MEQ/L Potassium 3.6 (3.6-5) MEQ/L Chloride 100 (98-107) MEQ/L Carbon Dioxide 27 (22-30) MEQ/L Anion Gap 13 (5-15) MEQ/L BUN 20.0 H (7-17) MG/DL Creatinine 0.7 D (0.7-1.2) MG/DL GFR Calculation 81 BUN/Creatinine Ratio 29 H (6-26) RATIO Glucose 107 (65-110) MG/DL Glucometer (65-110) mg/dL Calculated Osmolality 272 (261-280) MOSM/KG Calcium 10.0 D (8.4-10.2) MG/DL Total Bilirubin 2.60 H (0.20-1.30) MG/DL Icterus Index < 2 (0-7) AST 25 (14-36) U/L ALT 24 (9-52) U/L Alkaline Phosphatase 103 (38-126) U/L Troponin I 0.013 (0-0.12) ng/ml Total Protein 8.4 H (6.3-8.2) G/DL Albumin 4.6 (3.5-5.0) G/DL Globulin 3.8 H (2.4-3.6) G/DL Albumin/Globulin Ratio 1.2 (1.1-2.2) RATIO Specimen Hemolysis < 15 (0-25) Ur Collection Type Urine Color (YELLOW) Urine Clarity Urine pH (5.0-8.0) Ur Specific [place] (1.015-1.025) Urine Protein (NEGATIVE) Urine Glucose (UA) (NEGATIVE) Urine Ketones (NEGATIVE) Urine Occult Blood (NEGATIVE) Urine Nitrate (NEGATIVE) Urine Bilirubin (NEGATIVE) Urine Urobilinogen (NORMAL) EU/DL Ur Leukocyte Esterase (NEGATIVE) Urinalysis Comment - Radiology Data Radiology results reviewed: Yes: I reviewed the patient's radiology results. CT HEAD - No acute processes. CXR - No acute processes. - EKG Data EKG #1 EKG results narrative: Atrial fibrillation with rapid ventricular response. 114 bpm. No STEMI. No reciprocal changes. Disposition Clinical Impression: Afib Qualifiers: Atrial fibrillation type: unspecified Qualified Code(s): I48.91 - Unspecified atrial fibrillation Transient cerebral ischemia Qualifiers: Transient cerebral ischemia type: other Qualified Code(s): G45.8 - Other transient cerebral ischemic attacks and related syndromes Disposition: 02 To [facility] Condition: Stable Time of Disposition: 01:00 (Admit. Dr. Strauss. ) - Seen By: physician
[2017-06-14] MEDS ORDERED: ASPIRIN 81 MG CHEWABLE TABLET PO ONE (01:22)
[2017-06-14] MEDS ORDERED: ACETAMINOPHEN 325 MG TABLET PO PRN (01:41)
--- NOTE | 2017-06-14 01:45 | History & Physical Report ---
History of Present Illness Date: 06/14/17 Chief complaint: brief episode of slurred speech, dizzy HPI: Ivon is a 77 y/o female with h/o HTN, PAF, hypothyroidism, Fayette's and other medical issues who presents tonight to ER at [facility] [place] brought by EMS d/t concerns re: brief episode today of slurred speech and dizziness. Patient was recently hospitalized at [facility] [place] from 05/11 - 05/13 with main issue of labile hypertension, HTN urgency and possible TIA and discharged today to home. She returned home this afternoon and dropped something on the floor and bent down to pick it up and when she stood up she felt dizzy, and felt that her speech was slurred for a short period of time (approx. 30 minutes per her report). Her confirms that her speech was slurred, and even thought perhaps her left corner of her mouth had a slight droop, however EMS reports that symptoms seemed to have resolved when they arrived, other than some mild dizziness which resolved in the ER. Patient denies cp, becker, dysphagia, dysarthria, focal weakness, gait ataxia, change in bowel/bladder function and denies cough, dyspnea and SOA On previous hospital admission patient had MRI brain showing no acute CVA ( Impression: No acute intracranial hemorrhage or infarct. Significant worsening in small vessel ischemic white matter disease since 2013) and Carotid US showing mild-moderate disease in Left IC w/ 50-69% narrowing and the results of the echo are pending. In ED tonight, patient's EKG shows Afib w/ rates in 100-115 range, BP 145/62 and slightly elevated BUN/Cr ratio. Patient's CT head negative, CXR shows no acute process and UA negative. Patient's troponin unremarkable as well. Patient given ASA x one dose and started on 500cc NS IVFs. Currently patient denies any symptoms. Patient to be admitted to the Hospitalist service for further evaluation and management. Review of Systems All systems PM: 10-point ROS was reviewed, no additional remarkable complaints except Past Medical History Patient Stated Medical History Transient Ischemic Attacks ( Yes TIA) Other HEENT Yes: GLASSES Hypertension Yes Clinic Medical History (Last Reviewed 03/14/17 @ 08:34 by Montez Emerson MD) Osteoporosis (Chronic Medical ~2014) Adrenal insufficiency (Chronic Medical ~1976) Hypothyroidism (Chronic Medical ~1976) Slightly too much thyroid hormone replacement. Obesity (BMI 30-39.9) (Chronic Medical) Little weight loss. H/o PAF 2013 - no anticoagulation at that time. 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 Surgical History: Broke both arms Family History: Family History (Last Reviewed 03/14/17 @ 08:34 by Montez Emerson MD) Mother Lupus Sister Cancer Clarence's disease Family History Updates: No specific updates to Family Hx - Social History Current residence: Apartment/Private Home Medications Home Medications Medication Instructions Recorded Confirmed Type Calcium Carbonate [Calcium] 500 mg PO BID 06/09/17 06/14/17 History Cyanocobalamin (Vitamin B-12) 2,500 mg SL DAILY 06/09/17 06/14/17 History [Vitamin B-12] Ferrous Sulfate [Iron] 325 mg PO DAILY 06/09/17 06/14/17 History Hydrocortisone 20 mg PO BID 06/09/17 06/14/17 History Sotalol [Betapace] 80 mg PO BID 06/09/17 06/14/17 History Alendronate Sodium 70 mg PO WEEKLY 06/11/17 06/14/17 History Fludrocortisone [Florinef] 0.05 mg PO DAILY 06/11/17 06/14/17 History Levothyroxine Tab [Synthroid] 112 mcg PO ACB 06/11/17 06/14/17 History Allergies Allergy/AdvReac Type Severity Reaction Status Date / Time No Known Allergies Allergy Verified 06/14/17 00:43 Exam Vital Signs: Temperature 98.7 F 06/13/17 23:31 Pulse Rate 114 H 06/14/17 00:30 Respiratory Rate 23 06/14/17 00:30 Blood Pressure 143/73 H 06/14/17 00:24 Pulse Oximetry 95 06/14/17 00:30 Telemetry Rhythm: A-fib Height/Weight/BMI: Height 1.63 m Weight 79 kg - Constitutional Present: no acute distress, well nourished, well developed - Routine HEENT Exam Head: Present: normocephalic, atraumatic Eye: Present: EOMI, PERRL ENT: Present: mucous membranes dry, nares patent - Routine Neck Exam Present: supple, full ROM. Absent: JVD, carotid bruit - Routine Respiratory Exam Present: CTA bilaterally. Absent: respiratory distress - Routine Cardiovascular Exam Present: irregular rhythm - Routine Abdominal Exam Present: soft, normoactive bowel sounds, non distended, non tender - Routine Extremities Exam Absent: cyanosis, clubbing, edema - Routine Neurological Exam Present: alert, oriented X3, CN II-XII intact. Absent: sensory deficit, motor deficit - Routine Psychiatric Exam Present: normal affect, normal thought process Results - Labs CBC & Chem 7: 06/14/17 07:05 06/14/17 07:05 Assessment and Plan Assessment and Plan: A/ 1) Acute brief episode of slurred speech, dizziness w/ concern for TIA - recent MRI negative for acute CVA/infarct 2) Atrial Fibrillation w/ h/o PAF - recent echo - full report pending 3) Mild dehydration 4) HTN w/ recent h/o labile / elevated BP w/ recent hosp r/t HTN Urgency 5) Hypothyroidism 6) Fayette's disease 7) Tbili 2.6 - patient's prior notes mention h/o steatohepatitis however patient is not aware of any liver issues 8) Mild-moderate carotid artery disease P/ Admit to Hospitalist service Consult Dr. Robb of Cardiology Troponin in AM Telemetry Labs in Am - CBC, Cmp, Mg Continue home medications as indicated ASA given in ER Neuro checks SCDs IVFs that of NS at 75 cc/hour PT/ST Consider Neurology consult Consider anticoagulation Monitor BP DVT Prophylaxis: SCD's Resuscitation Status: Full Code - Physician Narrative Physician: Simi Foss MD Narrative: Date: 06/14/17 Time: 9:15am I have examined the patient and reviewed the H&P above and agree. Please see my additions below. Chief complaint: Slurred speech and left facial droop History of present illness: The patient was recently hospitalized and discharged yesterday with encephalopathy and hypertensive urgency. She underwent CT head which was negative for acute findings and MRI brain yesterday which was negative for acute stroke. Carotid Dopplers showed some moderate atherosclerosis which was less than 70%. Cholesterol panel showed cholesterol of 159, LDL 118, VLDL 14.8, HDL 26, cholesterol/HDL ratio 6.1. Blood pressure was under control and encephalopathy had resolved. She was dismissed to home. After only a couple of hours at home, she had sudden onset of slurred speech and left facial droop. Her called 911 immediately and EMS brought the patient to the emergency room. She stated she was talking with EMS on the way to the hospital and her slurred speech resolved by the time she arrived to the hospital. She also noticed some numbness in her fourth and fifth left fingers associated with this slurred speech but that did resolve. In the emergency room she was noted to have A. fib with rapid ventricular response. CT head was negative for acute findings. She was admitted last night and started on IV fluids. She denies any chest pains or palpitations. She denies any shortness of breath or lightheadedness. She denies any recurrence of slurred speech or numbness. She denies any difficulties with swallowing. She denies any vision changes. She denied having any dizziness or gait instability. She denied any weakness in her extremities. Past Medical History PAF in 2013 - not anticoagulated (Echo in 2013: EF 63%, mild MR, mild TR, moderate PH) HTN Moderate pulmonary HTN Steatohepatitis Clarence's disease Hypothyroidism History of Obesity (BMI 30-39.9) Osteoporosis Recent hospitalization 06/11/2017 through 06/13/2017 with possible TIA and hypertensive urgency Surgical History: breast biopsy. tubal ligation Family History Updates: Mother of complications from lupus at age 73. Her father of old age around 77 years. Her identical twin sister and only sister also had Fayette's disease. She from bone cancer at age 70. - Social History Smoking status: Never smoker Substance use type: does not use Alcohol intake frequency: does not drink Household members: spouse Social history: PCP: Dr. Porter Endocrine: Dr. Emerson Comprehensive review of systems: She has not had a bowel movement in 4 days. Otherwise, negative other than the above in history of present illness. Physical exam: Heart rates 110 to 130s in atrial fibrillation on telemetry. Afebrile. Blood pressure 147/89. O2 sat 95% on room air Gen. this is a well-developed well-nourished pleasant female in no acute distress. She was up standing, brushing her teeth when I came in and appeared to have good balance. Speech is normal. She is alert and oriented 3. HEENT reveals sclerae to be anicteric, pupils are equal round and reactive, oropharynx is moist. Neck is supple without JVD. Chest is clear to auscultation. Cardiovascular reveals a tachycardic rate with an irregular rhythm. Abdomen is soft and nontender. Extremities are free of edema. Skin is warm and dry and without rashes. Neurologic exam: At rest she has some asymmetry with mild drooping at the corner of her left mouth. When asked to smile she has no asymmetry. Cranial nerves II through XII are otherwise intact. Motor strength is equal and 5 over 5 in the upper and lower extremities. Finger to nose testing is equal in the upper extremities. Lab was reviewed. Repeat CBC is essentially unchanged. Repeat basic metabolic profile is essentially unchanged. Troponin is normal 2. Urinalysis is normal. CT head shows no acute intracranial abnormality or hemorrhage. Stable head CT. Impression TIA versus acute stroke now with only subtle left facial droop at rest. Slurred speech, significant facial droop, and numbness in the fourth and fifth left fingers have resolved A. fib with RVR Recent hypertensive urgency-resolved Recent encephalopathy-resolved Fayette's disease Constipation Mild dehydration Elevated total bilirubin-improved Carotid atherosclerosis Low LDL on cholesterol testing Plan Admit as inpatient. Continue on telemetry. Regarding possible acute stroke, will hold lisinopril and check an urgent MRI brain. Neurologic checks PT OT eval Consider anticoagulation but will await MRI brain. Dr. Robb consulted regarding A. fib with RVR. Dr. Reese consulted regarding possible acute stroke Start MiraLAX for constipation Hospital Course Summary Disclaimer: The visit summary below is not to be considered part of the above Progress Note.
[2017-06-14 01:49] VITALS: BMI 29.9
[2017-06-14] MEDS: NS 1,000 ML IV SCH ×2 (01:55→15:39)
[2017-06-14] MEDS: LEVOTHYROXINE 112 MCG TABLET PO SCH (06:32)
--- NOTE | 2017-06-14 07:59 | XRay Report ---
Indication: dizzy PROCEDURE: XR chest 1V: Encounter: Initial Comparison: June 09, 2017 Findings: The lungs are stable in appearance without new focal airspace consolidation. There is no pleural effusion or pneumothorax. The heart size, pulmonary vascularity and mediastinal contours are unchanged. IMPRESSION: Stable appearance of the chest without acute cardiopulmonary disease. .
--- NOTE | 2017-06-14 08:05 | CT Scan Report ---
Indication: Dizzy PROCEDURE: CT head/brain wo con: Encounter: Initial Comparison: June 11, 2017 Technique: Axial CT images through the head were performed without contrast. Iterative Reconstruction dose reducing technique was utilized. FINDINGS: Atrophy. The ventricles are stable. There are scattered areas of low attenuation in the white matter which most likely represent changes from chronic microvascular ischemia. The brainstem, cerebellum, and cerebral hemispheres otherwise have a normal morphology and CT attenuation. There is no evidence of midline displacement. No hemorrhage, signs of acute territorial stroke, mass effect, mass lesions, or edema is evident. The visualized portions of the skull base, midface, and calvarium demonstrate no abnormality. The paranasal sinuses are well aerated and free of significant disease. The tympanic and mastoid cavities appear normal. IMPRESSION: No acute intracranial abnormality or hemorrhage. Stable head CT. There is a preliminary report by [employer] [facility]. .
[2017-06-14] MEDS ORDERED: SOTALOL 80 MG TABLET PO SCH (09:00)
[2017-06-14] MEDS ORDERED: FERROUS SULFATE 324 MG TABLET PO SCH (09:00)
[2017-06-14] MEDS ORDERED: HYDROCORTISONE 20 MG TABLET PO SCH (09:00)
[2017-06-14] MEDS ORDERED: LISINOPRIL 10 MG TABLET PO SCH (09:00)
[2017-06-14] MEDS: POLYETHYL GLYCOL 3350 17gm PACKET PO SCH ×2 (09:23→21:16)
[2017-06-14] MEDS: FLUDROCORTISONE 0.1 MG TABLET PO SCH (09:23)
[2017-06-14] MEDS: LABETALOL 100 MG TABLET PO SCH ×2 (09:24→21:16)
[2017-06-14] MEDS: CALCIUM CARBONATE 500 MG TABLET PO SCH ×2 (09:25→21:15)
[2017-06-14] MEDS: CYANOCOBALAMIN (B-12) 500mcg TABLET PO SCH ×2 (09:27→11:07)
--- NOTE | 2017-06-14 10:04 | Cardiology Consult Note ---
<Ca Daniel - Last Filed: 06/15/17 13:17> History of Present Illness Consult date: 06/14/17 Requesting physician: Simi Foss Consult reason: atrial fibrillation Chief complaint: slurred speech History of present illness: Ivon is a 77 year old female who is known to Dr. Robb's practice with a history of PAF, HTN, hypothyroidism, and Jewell's disease who presented to ED by EMS with concerns re: brief episode of slurred speech and dizziness. In ED her EKG shows Afib w/ RVR, HR 100-[address] head was negative, CXR shows no acute process and UA negative. Her troponin is negative. She was given ASA x one dose. She was hospitalized at [facility] from 05/11 - 05/13 with main issue of labile hypertension, HTN urgency and possible TIA. MRI brain showed no acute CVA ( Impression: No acute intracranial hemorrhage or infarct. Significant worsening in small vessel ischemic white matter disease since 2013) and Carotid US showed mild-moderate disease in Left IC w/ 50-69% narrowing. Echo showed normal LV systolic function with ejection fraction of about 64%, grossly no intracardiac thrombus or mass, Left atrial dilation, mild mitral regurgitation, moderate tricuspid regurgitation with mild pulmonary hypertension with estimated pulmonary artery systolic pressure of 40, mild pulmonary insufficiency. EKG was SR. After returning home she dropped something on the floor and bent down to pick it up and when she stood up she felt dizzy, and felt that her speech was slurred for a short period of time (approx. 30 minutes per her report). Her confirms that her speech was slurred, and even thought perhaps her left corner of her mouth had a slight droop, however EMS reports that symptoms seemed to have resolved when they arrived, other than some mild dizziness which resolved in the ED. She is examined in her room on Medical. She denies symptoms at this time. Review of Systems - Constitutional Constitutional: Absent: chills, fever(s) - EENMT Eyes: Absent: change in vision Mouth/Throat: Absent: sore throat - Cardiovascular Cardiovascular: Absent: chest pain, palpitations, syncope, dyspnea on exertion Vascular: Absent: pedal edema - Respiratory Respiratory: Absent: cough, dyspnea, dyspnea on exertion - Gastrointestinal Gastrointestinal: Absent: diarrhea, nausea, vomiting - Genitourinary Genitourinary: Absent: dysuria - Integumentary/Breasts Integumentary: Absent: rash - Neurological Neurological: Present: dizziness - Endocrine Endocrine: Absent: palpitations PFSH Patient Stated Medical History Syncope Yes Transient Ischemic Attacks ( Yes TIA) Cataracts Yes Other HEENT Yes: GLASSES Hypertension Yes Hx Urinary Tract Infection Yes Clinic Medical History (Last Reviewed 03/14/17 @ 08:34 by Montez Emerson MD) Osteoporosis (Chronic Medical ~2014) Adrenal insufficiency (Chronic Medical ~1976) Hypothyroidism (Chronic Medical ~1976) Slightly too much thyroid hormone replacement. Obesity (BMI 30-39.9) (Chronic Medical) Little weight loss. Medical History Updates: Jewell's disease Surgical History: Broke both arms Family History: Family History (Last Reviewed 03/14/17 @ 08:34 by Montez Emerson MD) Mother Lupus Sister Cancer Jewell's disease - Social History Smoking status: Never smoker Substance use type: does not use Alcohol intake frequency: does not drink Household members: spouse Current occupational status: retired Current residence: Apartment/Private Home Medications Home Medications Medication Instructions Recorded Confirmed Type Calcium Carbonate [Calcium] 500 mg PO BID 06/09/17 06/16/17 History Cyanocobalamin (Vitamin B-12) 2,500 mg SL DAILY 06/09/17 06/16/17 History [Vitamin B-12] Ferrous Sulfate [Iron] 325 mg PO DAILY 06/09/17 06/16/17 History Hydrocortisone 20 mg PO BID 06/09/17 06/16/17 History Alendronate Sodium 70 mg PO WEEKLY 06/11/17 06/16/17 History Fludrocortisone [Florinef] 0.05 mg PO DAILY 06/11/17 06/16/17 History Levothyroxine Tab [Synthroid] 112 mcg PO ACB 06/11/17 06/16/17 History Allergies Allergy/AdvReac Type Severity Reaction Status Date / Time No Known Allergies Allergy Verified 06/14/17 00:43 Exam Vital signs: Temperature 95.6 F L 06/14/17 07:44 Pulse Rate 103 H 06/14/17 09:48 Respiratory Rate 18 06/14/17 09:48 Blood Pressure 147/89 H 06/14/17 07:44 Pulse Oximetry 95 06/14/17 09:48 - Constitutional no acute distress, well nourished, cooperative - Routine HEENT Exam Head: Present: normocephalic ENT: Present: mucous membranes moist - Routine Neck Exam Absent: JVD, carotid bruit - Routine Chest/Breast/Axilla Exam Chest wall: Absent: tenderness - Routine Respiratory Exam Present: CTA bilaterally - Routine Cardiovascular Exam Present: no murmur, tachycardia, irregular rhythm - Routine Abdominal Exam Present: soft, normoactive bowel sounds - Routine Extremities Exam Present: no edema - Routine Skin Exam Present: intact, dry, warm - Routine Neurological Exam Present: alert, oriented X3 - Routine Psychiatric Exam Present: normal affect, normal thought process Results 06/14/17 07:05 06/14/17 07:05 Cardiac Enzymes 06/14/17 Range/Units 07:05 AST 21 (14-36) U/L Troponin I 0.027 D (0-0.12) ng/ml CBC 06/14/17 Range/Units 07:05 WBC 7.9 (4.5-11.0) T/MM3 RBC 4.49 (4.00-5.20) M/MM3 Hgb 13.6 (12-16) GM/DL Hct 41.5 (36-46) % Plt Count 141 (130-400) T/MM3 Neut # (Auto) 3.9 (1.8-7.7) T/MM3 Lymph # (Auto) 2.9 (1-4.8) T/MM3 [place] # (Auto) 0.9 H (0-0.8) T/MM3 Eos # (Auto) 0.2 (0-0.5) T/MM3 Baso # (Auto) 0.0 (0-0.2) T/MM3 Comprehensive Metabolic Panel 06/14/17 Range/Units 07:05 Sodium 141 (134-144) MEQ/L Potassium 3.8 (3.6-5) MEQ/L Chloride 105 (98-107) MEQ/L Carbon Dioxide 25 (22-30) MEQ/L BUN 17.0 (7-17) MG/DL Creatinine 0.6 L (0.7-1.2) MG/DL Glucose 106 (65-110) MG/DL Calcium 8.9 D (8.4-10.2) MG/DL AST 21 (14-36) U/L ALT 27 (9-52) U/L Alkaline Phosphatase 78 (38-126) U/L Total Protein 7.1 (6.3-8.2) G/DL Albumin 3.8 (3.5-5.0) G/DL Intake and Output 06/13/17 06/14/17 06/14/17 22:59 06:59 14:59 Intake Total 406.25 / 906.25 Output Total 250 / 250 200 / 200 Balance 156.25 / 656.25 -200 / -200 Intake: IV 306.25 / 306.25 Ns 1,000 ml @ 75 mls/hr IV . 306.25 / 306.25 [id number] RYAN Rx#:[id number] Oral 100 / 100 Output: Urine 250 / 250 200 / 200 Other: Urine Appearance Clear Urine Color Yellow Weight 174 lb 2.643 oz 175 lb 14.862 oz Patient Weight 06/15/17 06:59 Weight 175 lb 14.862 oz - Imaging and Cardiology Echo: report reviewed Imaging & Cardiology Narrative: Date of Exam: 06/13/17 Type of Exam(s): US echo doppler complete DATE OF PROCEDURE June 13, 2017 This is a two-dimensional echo with spectral Doppler, color-flow and M-mode. It was obtained in a patient with TIA and stroke. Left atrium is dilated. Left ventricular end-diastolic dimension is normal. Left ventricle wall thickness is normal. LV systolic function is normal with ejection fraction of 64%. Right atrium is normal. Right ventricle is normal. Aortic root dimension is normal. Mitral valve is morphologically normal with mild mitral regurgitation. Aortic valve is a trileaflet structure with no stenosis or insufficiency. Tricuspid valve shows moderate tricuspid regurgitation with mild pulmonary hypertension with estimated pulmonary artery systolic pressure of 40. Pulmonary valve shows mild pulmonary insufficiency. There is no pericardial effusion. Grossly there is no intracardiac thrombus or mass. IMPRESSION 1. Normal LV systolic function with ejection fraction of about 64%. 2. Grossly no intracardiac thrombus or mass. 3. Left atrial dilation. 4. Mild mitral regurgitation. 5. Moderate tricuspid regurgitation with mild pulmonary hypertension with estimated pulmonary artery systolic pressure of 40. 6. Mild pulmonary insufficiency. 06/14/17 10:12 06/14/17 10:12 Date of Exam: 06/14/17 Ordering Provider: Walker South DO Type of Exam(s): CT head/brain wo con Reason for Exam(s): Dizzy Indication: Dizzy PROCEDURE: CT head/brain wo con: Encounter: Initial Comparison: June 11, 2017 Technique: Axial CT images through the head were performed without contrast. Iterative Reconstruction dose reducing technique was utilized. FINDINGS: Atrophy. The ventricles are stable. There are scattered areas of low attenuation in the white matter which most likely represent changes from chronic microvascular ischemia. The brainstem, cerebellum, and cerebral hemispheres otherwise have a normal morphology and CT attenuation. There is no evidence of midline displacement. No hemorrhage, signs of acute territorial stroke, mass effect, mass lesions, or edema is evident. The visualized portions of the skull base, midface, and calvarium demonstrate no abnormality. The paranasal sinuses are well aerated and free of significant disease. The tympanic and mastoid cavities appear normal. IMPRESSION: No acute intracranial abnormality or hemorrhage. Stable head CT. There is a preliminary report by virtual radiologic. 06/14/17 10:13 Date of Exam: 06/13/17 Ordering Provider: Cuca Bhandari MD Type of Exam(s): US carotid doppler BI Reason for Exam(s): TIA/Stroke symptoms EXAM: US carotid doppler BI LOCATION OF DICTATION: [place] HISTORY: TIA/Stroke symptoms COMPARISON: No prior studies available for comparison. TECHNIQUE: Multiple real-time grayscale sonographic images were obtained of the carotid arteries bilaterally with color flow and spectral analysis. Peak systolic velocities are measured in centimeters per second. FINDINGS: Velocities are as follows: RIGHT CAROTID SYSTEM: CCA: 108 cm/S Proximal ICA: 91 cm/S Mid ICA: 106 cm/S Distal ICA: 98.8 cm/S ECA: 101 cm/S Vertebral: Antegrade ICA/CCA ratio: 1.0 LEFT CAROTID SYSTEM: CCA: 113 cm/S Proximal ICA: 162 cm/S Mid ICA: 130 cm/S Distal ICA: 136 cm/S ECA: 114 cm/S Vertebral: Antegrade ICA/CCA ratio: 1.4 Mild atherosclerotic disease bilaterally. IMPRESSION: Mild left atherosclerotic disease bilaterally with slightly increased velocity in the left internal carotid artery correlating with 50-69% narrowing. Follow-up carotid ultrasound one year could be obtained to reevaluate. EKG interpretations - EKG EKG shows: atrial fibrillation (RVR) Assessment and Plan - Assessment and Plan (1) Atrial fibrillation with RVR Status: Acute Rate control with Cardizem CD 120mg daily - Stop Sotalol - Pradaxa 150mg BID for stroke prevention - 2D echo obtained 06/13/17 (2) Adrenal insufficiency Status: Chronic (3) Hypothyroidism Problem details: Slightly too much thyroid hormone replacement. Status: Chronic (4) Essential (primary) hypertension Status: Chronic Continue home Labetalol and Lisinopril - Assessment and Plan Afib RVR: Rate control with Cardizem CD 120mg daily - Stop Sotalol - Pradaxa 150mg BID for stroke prevention - 2D echo obtained 06/13/17 HTN: Continue home Labetalol and Lisinopril Thank you for allowing us to participate in this patient's care, we will follow along with you. Hospital Course Summary Disclaimer: The visit summary below is not to be considered part of the above Progress Note. <Simón Robb - Last Filed: 06/17/17 15:32> [facility] Patient Stated Medical History Syncope Yes Transient Ischemic Attacks ( Yes TIA) Cataracts Yes Other HEENT Yes: GLASSES Hypertension Yes Hx Urinary Tract Infection Yes Clinic Medical History (Last Reviewed 03/14/17 @ 08:34 by Montez Emerson MD) Osteoporosis (Chronic Medical ~2014) Adrenal insufficiency (Chronic Medical ~1976) Hypothyroidism (Chronic Medical ~1976) Slightly too much thyroid hormone replacement. Obesity (BMI 30-39.9) (Chronic Medical) Little weight loss. Family History: Family History (Last Reviewed 03/14/17 @ 08:34 by Montez Emerson MD) Mother Lupus Sister Cancer Jewell's disease Exam Vital signs: Temperature 97.7 F 06/15/17 08:00 Pulse Rate 69 06/15/17 08:00 Respiratory Rate 18 06/15/17 08:00 Blood Pressure 157/67 H 06/15/17 08:00 Pulse Oximetry 96 06/15/17 08:00 Results 06/14/17 07:05 06/14/17 07:05 Assessment and Plan - Attestation Attestation Narrative: 06/17/17 15:32 Recommendation After examining the patient I agree with the above assessment. I am involved in the formulation of the patient's plan of care. - Assessment and Plan (1) Hypothyroidism Problem details: Slightly too much thyroid hormone replacement. Status: Chronic (2) Adrenal insufficiency Status: Chronic (3) Atrial fibrillation with RVR Status: Acute (4) Essential (primary) hypertension Status: Chronic Hospital Course Summary Disclaimer: The visit summary below is not to be considered part of the above Progress Note.
--- NOTE | 2017-06-14 11:08 | Magnetic Resonance Report ---
Indication: recurrent tia, rule out cva PROCEDURE: MR head/brain wo con: Encounter: Initial Comparisons: Brain MRI dated June 12, 2017 Technique: Multiplanar, multisequence, MR imaging of the head without contrast was acquired. FINDINGS: No acute infarct. Ventricles are stable. No acute intracranial hemorrhage. White matter disease is not visibly changed. Mild atrophy. No mass effect or midline shift. Paranasal sinuses are grossly clear as are the mastoids. IMPRESSION: Stable exam. No evidence of acute infarct or acute intracranial abnormality. .
--- NOTE | 2017-06-14 14:45 | Consultation ---
DATE OF CONSULTATION 06/14/[address] Foss PATIENT'S CHIEF COMPLAINT Left facial weakness and dysarthria. HISTORY OF PRESENT ILLNESS The patient is a 77-year-old female with history of hypertension. The patient was initially admitted to [facility] two days ago for hypertensive crisis and hypertensive encephalopathy. This was discovered on her trip to the dentist prior to admission. The patient was having some mild confusion and balance problem. Her symptoms have improved and she was discharged home. Prior to discharge she had an MRI of the brain that showed no acute abnormalities and small vessel disease. She also had a carotid Doppler that showed a moderate left internal carotid artery stenosis. Her echocardiogram at that time was unremarkable. The patient went home and she had an acute-onset left facial weakness and dysarthria problem. She had also some mild confusion. She was brought back to the emergency room and readmitted to [facility]. Her blood pressure was in the 180/100 range and this has improved since then to the 140/90 range. The patient was given aspirin in the emergency room. She had another EKG that showed evidence of atrial fibrillation. Her facial weakness and dysarthria also improved during the course of admission within a few hours. She denies having any headache or shortness of breath. She had a CT of the head in the ER that showed no acute abnormalities. The patient is scheduled to have another MRI of the brain later today to rule out acute ischemic stroke. She also is going to see Dr. Robb to evaluate her atrial fibrillation and the need for treatment and anticoagulation. PHYSICAL EXAMINATION The patient was awake, alert, oriented x 3. Pupils were round, reactive and equal. Extraocular muscles were intact. Visual field was full. Facial muscles showed mild weakness on the left compared to the right, graded as 4/5. Sensory examination in the face was symmetrical for light touch and pinprick. Upper extremity and lower extremity motor functioning was 5/5 bilaterally. The patient had some early numbness in the left little finger and ring fingers when she was admitted and this has improved. Deep tendon reflexes were 2/4. Plantar reflexes were in flexion bilaterally. Coordination for [id number] was slow bilaterally. ASSESSMENT 1. Possible new-onset small vessel ischemic stroke causing the patient to have left facial weakness and dysarthria problem. MRI of the brain is warranted to rule out this particular condition. 2. Hypertensive encephalopathy. This has been improving with medication. 3. Atrial fibrillation. This could have been a new onset and needs to be managed with medication and potential anticoagulation. PLAN 1. Obtain MRI of the brain to rule out acute stroke. 2. Follow up Dr. Robb's recommendation regarding treatment for atrial fibrillation and anticoagulation which is warranted in case of stroke. 3. Optimize treatment for hypertension and avoid hypotension. 4. Provide good fluid intake. 5. Follow up with Speech Therapy. LAZARAD
[2017-06-14] MEDS: HYDROCORTISONE 20 MG TABLET PO SCH (17:42)
[2017-06-14 23:38] VITALS: RESP 18
[2017-06-15] MEDS: NS 1,000 ML IV SCH (05:25)
[2017-06-15] MEDS: LEVOTHYROXINE 112 MCG TABLET PO SCH (05:30)
[2017-06-15] MEDS ORDERED: FERROUS SULFATE 324 MG TABLET PO SCH (08:00)
[2017-06-15 08:40] VITALS: BP 157/67; PULSE 69; TEMP 97.7; O2SAT 96
[2017-06-15] MEDS: LABETALOL 100 MG TABLET PO SCH (09:34)
[2017-06-15] MEDS: FLUDROCORTISONE 0.1 MG TABLET PO SCH (09:34)
[2017-06-15] MEDS: CYANOCOBALAMIN (B-12) 500mcg TABLET PO SCH (09:34)
[2017-06-15] MEDS: POLYETHYL GLYCOL 3350 17gm PACKET PO SCH (09:35)
[2017-06-15] MEDS: CALCIUM CARBONATE 500 MG TABLET PO SCH (09:35)
[2017-06-15] MEDS: HYDROCORTISONE 20 MG TABLET PO SCH (09:36)
--- NOTE | 2017-06-15 13:25 | Cardiology Progress Note ---
<Ca Daniel M - Last Filed: 06/15/17 13:21> Subjective Principal diagnosis: afib RVR Interval history: Ivon is seen in follow up for AFib RVR. She is walking in the dietz with her nurse. She denies chest pain, palpitations, dizziness, weakness, syncope. Exam Vital signs: Temperature 97.7 F 06/15/17 08:00 Pulse Rate 69 06/15/17 08:00 Respiratory Rate 18 06/15/17 08:00 Blood Pressure 157/67 H 06/15/17 08:00 Pulse Oximetry 96 06/15/17 08:00 Inpatient Medications: Generic Name Dose Route Start Last Admin Trade Name Freq PRN Reason Stop Dose Admin Acetaminophen 650 mg 06/14/17 01:41 Tylenol PO Q5H PRN Discomfort Calcium Carbonate 500 mg 06/14/17 09:00 06/15/17 09:35 Calcium PO 500 mg BID RYAN Administration Cyanocobalamin 2,500 mcg 06/14/17 09:00 06/15/17 09:34 Vit. B-12 PO 2,500 mcg DAILY RYAN Administration Dabigatran 150 mg 06/14/17 15:15 06/15/17 09:34 Pradaxa PO 150 mg BID RYAN Administration Diltiazem HCl 120 mg 06/14/17 14:15 06/15/17 09:35 Cardizem Cd 120 Mg PO 120 mg DAILY RYAN Administration Ferrous Sulfate 324 mg 06/15/17 08:00 06/15/17 09:44 Feosol PO 324 mg WB RYAN Administration Fludrocortisone Acetate 0.05 mg 06/14/17 09:00 06/15/17 09:34 Florinef PO 0.05 mg DAILY RYAN Administration Hydrocortisone 20 mg 06/14/17 17:30 06/15/17 09:36 Cortef PO 20 mg BIDWM RYAN Administration Sodium Chloride 1,000 mls @ 75 mls/hr 06/14/17 01:41 06/15/17 05:25 Normal Saline IV 75 mls/hr .[id number] RYAN Administration Labetalol HCl 100 mg 06/14/17 09:00 06/15/17 09:34 Normodyne PO 100 mg BID RYAN Administration Levothyroxine Sodium 112 mcg 06/14/17 06:30 06/15/17 05:30 Synthroid PO 112 mcg ACB RYAN Administration Lisinopril 10 mg 06/14/17 09:00 06/14/17 09:25 Prinivil PO Not Given DAILY RYAN Magnesium Hydroxide 30 ml 06/15/17 08:55 06/15/17 08:57 Mom PO 30 ml DAILY PRN Administration Constipation Polyethylene Glycol 17 gm 06/14/17 09:06 06/15/17 09:35 Miralax PO 17 gm BID RYAN Administration Sodium Chloride 10 - 80 ml 06/13/17 23:48 06/14/17 00:37 Iv Flush IVF 10 ml PRN PRN Administration Flushing Discontinued Medications Generic Name Dose Route Start Last Admin Trade Name Freq PRN Reason Stop Dose Admin Aspirin 324 mg 06/14/17 01:22 06/14/17 01:25 Asa PO 06/14/17 01:23 324 mg O ONE Administration Ferrous Sulfate 324 mg 06/14/17 09:00 06/14/17 09:26 Feosol PO 324 mg DAILY RYAN Administration Hydrocortisone 20 mg 06/14/17 09:00 06/14/17 09:23 Cortef PO 20 mg BID RYAN Administration Sodium Chloride 500 mls @ 999.9 mls/hr 06/14/17 00:30 06/14/17 01:31 Normal Saline IV Not Given .Q30M RYAN Sotalol HCl 80 mg 06/14/17 09:00 06/14/17 09:24 Betapace PO 80 mg BID RYAN Administration - Constitutional no acute distress, cooperative - Routine HEENT Exam Head: Present: normocephalic ENT: Present: mucous membranes moist - Routine Neck Exam Absent: JVD, carotid bruit - Routine Chest/Breast/Axilla Exam Chest wall: Absent: tenderness - Routine Respiratory Exam Present: CTA bilaterally. Absent: rales, wheezes - Routine Cardiovascular Exam Present: RRR, no murmur - Routine Abdominal Exam Present: soft, normoactive bowel sounds - Routine Extremities Exam Present: no edema - Routine Skin Exam Present: intact, dry, warm - Routine Neurological Exam Present: alert, oriented X3 - Routine Psychiatric Exam Present: normal affect, normal thought process Results 06/14/17 07:05 06/14/17 07:05 Intake and Output 06/14/17 06/15/17 06/15/17 22:59 06:59 14:59 Intake Total 933.75 / 933.75 1000 / 1000 100 / 100 Output Total 325 / 325 350 / 350 400 / 400 Balance 608.75 / 608.75 650 / 650 -300 / -300 Intake: IV 693.75 / 693.75 1000 / 1000 Ns 1,000 ml @ 75 mls/hr IV . 693.75 / 693.75 1000 / 1000 [id number] RYAN Rx#:[id number] Oral 240 / 240 100 / 100 Output: Urine 325 / 325 350 / 350 400 / 400 Other: Urine Appearance Clear Clear Urine Color Light Valeria Light Valeria Dark Yellow Weight 179 lb 10.828 oz Patient Weight 06/16/17 06:59 Weight 179 lb 10.828 oz - Imaging and Cardiology Echo: report reviewed Imaging & Cardiology Narrative: Date of Exam: 06/13/17 Type of Exam(s): US echo doppler complete DATE OF PROCEDURE June 13, 2017 This is a two-dimensional echo with spectral Doppler, color-flow and M-mode. It was obtained in a patient with TIA and stroke. Left atrium is dilated. Left ventricular end-diastolic dimension is normal. Left ventricle wall thickness is normal. LV systolic function is normal with ejection fraction of 64%. Right atrium is normal. Right ventricle is normal. Aortic root dimension is normal. Mitral valve is morphologically normal with mild mitral regurgitation. Aortic valve is a trileaflet structure with no stenosis or insufficiency. Tricuspid valve shows moderate tricuspid regurgitation with mild pulmonary hypertension with estimated pulmonary artery systolic pressure of 40. Pulmonary valve shows mild pulmonary insufficiency. There is no pericardial effusion. Grossly there is no intracardiac thrombus or mass. IMPRESSION 1. Normal LV systolic function with ejection fraction of about 64%. 2. Grossly no intracardiac thrombus or mass. 3. Left atrial dilation. 4. Mild mitral regurgitation. 5. Moderate tricuspid regurgitation with mild pulmonary hypertension with estimated pulmonary artery systolic pressure of 40. 6. Mild pulmonary insufficiency. 06/15/17 13:24 Assessment and Plan - Assessment and Plan (1) Atrial fibrillation with RVR Status: Acute (2) Adrenal insufficiency Status: Chronic (3) Hypothyroidism Problem details: Slightly too much thyroid hormone replacement. Status: Chronic (4) Essential (primary) hypertension Status: Chronic - Assessment and Plan Afib RVR: Rate control with Cardizem CD 120mg daily - Stop Sotalol - Pradaxa 150mg BID for stroke prevention - 2D echo obtained 06/13/17 HTN: Continue home Labetalol and Lisinopril Thank you for allowing us to participate in this patient's care, we will follow along with you. Hospital Course Summary Disclaimer: The visit summary below is not to be considered part of the above Progress Note. <DulcestewSimón - Last Filed: 06/17/17 15:39> Exam Vital signs: Temperature 97.7 F 06/15/17 08:00 Pulse Rate 69 06/15/17 08:00 Respiratory Rate 18 06/15/17 08:00 Blood Pressure 157/67 H 06/15/17 08:00 Pulse Oximetry 96 06/15/17 08:00 Inpatient Medications: Discontinued Medications Generic Name Dose Route Start Last Admin Trade Name Freq PRN Reason Stop Dose Admin Acetaminophen 650 mg 06/14/17 01:41 Tylenol PO Q5H PRN Discomfort Aspirin 324 mg 06/14/17 01:22 06/14/17 01:25 Asa PO 06/14/17 01:23 324 mg O ONE Administration Calcium Carbonate 500 mg 06/14/17 09:00 06/15/17 09:35 Calcium PO 500 mg BID RYAN Administration Cyanocobalamin 2,500 mcg 06/14/17 09:00 06/15/17 09:34 Vit. B-12 PO 2,500 mcg DAILY RYAN Administration Dabigatran 150 mg 06/14/17 15:15 06/15/17 09:34 Pradaxa PO 150 mg BID RYAN Administration Diltiazem HCl 120 mg 06/14/17 14:15 06/15/17 09:35 Cardizem Cd 120 Mg PO 120 mg DAILY RYAN Administration Ferrous Sulfate 324 mg 06/14/17 09:00 06/14/17 09:26 Feosol PO 324 mg DAILY RAYN Administration Ferrous Sulfate 324 mg 06/15/17 08:00 06/15/17 09:44 Feosol PO 324 mg WB RYAN Administration Fludrocortisone Acetate 0.05 mg 06/14/17 09:00 06/15/17 09:34 Florinef PO 0.05 mg DAILY RYAN Administration Hydrocortisone 20 mg 06/14/17 09:00 06/14/17 09:23 Cortef PO 20 mg BID RYAN Administration Hydrocortisone 20 mg 06/14/17 17:30 06/15/17 09:36 Cortef PO 20 mg BIDWM RYAN Administration Sodium Chloride 500 mls @ 999.9 mls/hr 06/14/17 00:30 06/14/17 01:31 Normal Saline IV Not Given .Q30M RYAN Sodium Chloride 1,000 mls @ 75 mls/hr 06/14/17 01:41 06/15/17 05:25 Normal Saline IV 75 mls/hr .[id number] RYAN Administration Labetalol HCl 100 mg 06/14/17 09:00 06/15/17 09:34 Normodyne PO 100 mg BID RYAN Administration Levothyroxine Sodium 112 mcg 06/14/17 06:30 06/15/17 05:30 Synthroid PO 112 mcg ACB RYAN Administration Lisinopril 10 mg 06/14/17 09:00 06/14/17 09:25 Prinivil PO Not Given DAILY RYAN Magnesium Hydroxide 30 ml 06/15/17 08:55 06/15/17 08:57 Mom PO 30 ml DAILY PRN Administration Constipation Polyethylene Glycol 17 gm 06/14/17 09:06 06/15/17 09:35 Miralax PO 17 gm BID RYAN Administration Sodium Chloride 10 - 80 ml 06/13/17 23:48 06/14/17 00:37 Iv Flush IVF 10 ml PRN PRN Administration Flushing Sotalol HCl 80 mg 06/14/17 09:00 06/14/17 09:24 Betapace PO 80 mg BID RYAN Administration Results 06/14/17 07:05 06/14/17 07:05 Assessment and Plan - Assessment and Plan (1) Hypothyroidism Problem details: Slightly too much thyroid hormone replacement. Status: Chronic (2) Adrenal insufficiency Status: Chronic (3) Atrial fibrillation with RVR Status: Acute (4) Essential (primary) hypertension Status: Chronic - Attestation Attestation Narrative: 06/17/17 15:39 Recommendation After examining the patient I agree with the above assessment. I am involved in the formulation of the patient's plan of care. Hospital Course Summary Disclaimer: The visit summary below is not to be considered part of the above Progress Note.
--- NOTE | 2017-06-15 14:56 | Discharge Summary ---
Discharge Information Date of admission: 06/14/17 01:28 Anticipated date of discharge: 06/15/17 Attending Physician: Simi Foss MD Primary care physician: Leslie Porter DO Consults: 06/14/17 09:05 Physician Consult [CONS] Routine Consulting Provider: Beth Reese Reason For Exam: tia, rule out cva Ordering Provider has Notified Manager Security And Safety: Yes Comment: i will notify him Dr. Robb regarding atrial fibrillation Diagnoses TIA with slurred speech and left facial droop-resolved A. fib with RVR Hypertension Recent hypertensive urgency Mild dehydration Hypothyroidism [place]'s disease Mild elevation of bilirubin Mild to moderate carotid artery disease Encephalopathy-resolved - Laboratory Labs: 06/14/17 07:05 06/14/17 07:05 Laboratory Tests 06/13/17 06/13/17 06/14/17 03:59 23:49 07:05 INR 1.17 APTT 29.0 Total Bilirubin 2.00 H AST 21 ALT 27 Alkaline Phosphatase 78 Troponin I 0.027 D Triglycerides 74 Cholesterol 159 LDL Cholesterol, Calc 118.2 VLDL Cholesterol 14.8 HDL Cholesterol 26 L Cholesterol/HDL Ratio 6.1 H TSH 06/14/17 07:05 INR APTT Total Bilirubin AST ALT Alkaline Phosphatase Troponin I Triglycerides Cholesterol LDL Cholesterol, Calc VLDL Cholesterol HDL Cholesterol Cholesterol/HDL Ratio TSH 2.33 - Radiology Radiology: Chest x-ray shows stable appearance of the chest without acute cardiopulmonary disease Date of Exam: 06/14/17 Ordering Provider: Simi Foss MD Type of Exam(s): MR head/brain wo con Reason for Exam(s): recurrent tia, rule out cva Indication: recurrent tia, rule out cva PROCEDURE: MR head/brain wo con: Encounter: Initial Comparisons: Brain MRI dated June 12, 2017 Technique: Multiplanar, multisequence, MR imaging of the head without contrast was acquired. FINDINGS: No acute infarct. Ventricles are stable. No acute intracranial hemorrhage. White matter disease is not visibly changed. Mild atrophy. No mass effect or midline shift. Paranasal sinuses are grossly clear as are the mastoids. IMPRESSION: Stable exam. No evidence of acute infarct or acute intracranial abnormality. Date of Exam: 06/14/17 Ordering Provider: Walker South DO Type of Exam(s): CT head/brain wo con Reason for Exam(s): Dizzy Indication: Dizzy PROCEDURE: CT head/brain wo con: Encounter: Initial Comparison: June 11, 2017 Technique: Axial CT images through the head were performed without contrast. Iterative Reconstruction dose reducing technique was utilized. FINDINGS: Atrophy. The ventricles are stable. There are scattered areas of low attenuation in the white matter which most likely represent changes from chronic microvascular ischemia. The brainstem, cerebellum, and cerebral hemispheres otherwise have a normal morphology and CT attenuation. There is no evidence of midline displacement. No hemorrhage, signs of acute territorial stroke, mass effect, mass lesions, or edema is evident. The visualized portions of the skull base, midface, and calvarium demonstrate no abnormality. The paranasal sinuses are well aerated and free of significant disease. The tympanic and mastoid cavities appear normal. IMPRESSION: No acute intracranial abnormality or hemorrhage. Stable head CT. There is a preliminary report by [employer]. History of Present Illness HPI: Ivon is a 77 y/o female with h/o HTN, PAF, hypothyroidism, Luzerne's and other medical issues who presents tonight to ER at [facility] brought by EMS d/t concerns re: brief episode today of slurred speech and dizziness. Patient was recently hospitalized at [facility] from 05/11 - 05/13 with main issue of labile hypertension, HTN urgency and possible TIA and discharged today to home. She returned home this afternoon and dropped something on the floor and bent down to pick it up and when she stood up she felt dizzy, and felt that her speech was slurred for a short period of time (approx. 30 minutes per her report). Her confirms that her speech was slurred, and even thought perhaps her left corner of her mouth had a slight droop, however EMS reports that symptoms seemed to have resolved when they arrived, other than some mild dizziness which resolved in the ER. Patient denies cp, becker, dysphagia, dysarthria, focal weakness, gait ataxia, change in bowel/bladder function and denies cough, dyspnea and SOA On previous hospital admission patient had MRI brain showing no acute CVA ( Impression: No acute intracranial hemorrhage or infarct. Significant worsening in small vessel ischemic white matter disease since 2013) and Carotid US showing mild-moderate disease in Left IC w/ 50-69% narrowing and the results of the echo are pending. In ED tonight, patient's EKG shows Afib w/ rates in 100-115 range, BP 145/62 and slightly elevated BUN/Cr ratio. Patient's CT head negative, CXR shows no acute process and UA negative. Patient's troponin unremarkable as well. Patient given ASA x one dose and started on 500cc NS IVFs. Currently patient denies any symptoms. Patient to be admitted to the Hospitalist service for further evaluation and management. Objective Vital signs: Temperature 97.7 F 06/15/17 08:00 Pulse Rate 69 06/15/17 08:00 Respiratory Rate 18 06/15/17 08:00 Blood Pressure 157/67 H 06/15/17 08:00 Pulse Oximetry 96 06/15/17 08:00 Height/Weight/BMI: Height 1.63 m Weight 81.5 kg Body Mass Index 29.9 Comments: On the day of discharge the patient is alert and oriented 3 and in no acute distress. She has been up walking and feels well. Telemetry shows she is back in sinus rhythm. Chest is clear to auscultation. Cardiovascular reveals a regular rate and rhythm. Abdomen is soft and nontender. Extremities are free of edema. Gait is normal. Hospital Course This is a general summary of the patient's hospital course. For more details refer to the complete medical record. Hospital course: History of present illness The patient was recently hospitalized and discharged 06/13/2017 with encephalopathy and hypertensive urgency. She underwent CT head which was negative for acute findings and MRI brain yesterday which was negative for acute stroke. Carotid Dopplers showed some moderate atherosclerosis which was less than 70%. Cholesterol panel showed cholesterol of 159, LDL 118, VLDL 14.8, HDL 26, cholesterol/HDL ratio 6.1. Blood pressure was under control and encephalopathy had resolved. She was dismissed to home. After only a couple of hours at home, she had sudden onset of slurred speech and left facial droop. Her called 911 immediately and EMS brought the patient to the emergency room. She stated she was talking with EMS on the way to the hospital and her slurred speech resolved by the time she arrived to the hospital. She also noticed some numbness in her fourth and fifth left fingers associated with this slurred speech but that did resolve. In the emergency room she was noted to have A. fib with rapid ventricular response. CT head was negative for acute findings. She was admitted and started on IV fluids. She denies any chest pains or palpitations. She denies any shortness of breath or lightheadedness. She denies any recurrence of slurred speech or numbness. She denies any difficulties with swallowing. She denies any vision changes. She denied having any dizziness or gait instability. She denied any weakness in her extremities. Hospital course The patient was admitted with symptoms of a TIA and new onset A. fib with rapid ventricular response. Her slurred speech and facial droop cleared fairly quickly. Dr. Robb was consulted regarding A. fib with RVR. The patient underwent repeat MRI brain which showed no acute stroke. We then elected to start anticoagulation with Pradaxa which was initiated this hospital course. She has tolerated this well. Her lisinopril was discontinued. She was started on Cardizem in addition to her labetalol for hypertension. Blood pressure shows fairly good control. PT and OT saw the patient and recommended home with family. She does not need a walker for ambulation. Speech therapy saw the patient and stated that she could follow-up as an outpatient regarding mild memory difficulties if recommended by her primary care physician. She has had some constipation and has taken MiraLAX and milk of magnesia without effect yet. She denies any abdominal discomfort or nausea. She has declined Dulcolax suppositories. She wants to try eating prunes or drinking prune juice when she gets home. She will continue on MiraLAX. Regarding carotid atherosclerosis which is mild to moderate, will start Lipitor 10 mg once daily. The patient was given samples of Pradaxa by Dr. Robb. On 06/15/2017 was felt that the patient was stable for dismissal to home. Her is here and is in agreement with discharge. They were notified that if she should have any recurrent symptoms of TIA or stroke they should call 911. If she has trouble with bleeding that is mild she should call her physician but if she is having severe bleeding she should come to the emergency room or call 911. She will check her blood pressure once daily. Time spent with patient: greater than 35 minutes Resuscitation Status: Full Code Discharge Plan - Discharge Disposition Discharge Date: 06/15/17 Disposition: Discharged Home, Self-Care *Condition: Stable Reason For Visit (Visit label in EMR): afib, TIA - Discharge Medications *Discharge Medications: New Acetaminophen [Tylenol] 650 mg PO Q5H PRN tab PRN Reason: Discomfort Dabigatran [Pradaxa] 150 mg PO BID cap PEG 3350 17gm PACKET [Miralax] 17 gm PO BID #1 bottle Atorvastatin [Lipitor] 1 tab PO HS #30 tab DiltiaZEM CD [Cardizem CD 120 MG] 120 mg PO DAILY #30 cap Continue Cyanocobalamin (Vitamin B-12) [Vitamin B-12] 2,500 mg SL DAILY Calcium Carbonate [Calcium] 500 mg PO BID Hydrocortisone 20 mg PO BID Ferrous Sulfate [Iron] 325 mg PO DAILY Labetalol [Normodyne] 100 mg PO BID #60 tab Alendronate Sodium 70 mg PO WEEKLY Fludrocortisone [Florinef] 0.05 mg PO DAILY Levothyroxine Tab [Synthroid] 112 mcg PO ACB Discontinued Lisinopril [Prinivil] 10 mg PO DAILY #30 tab Sotalol [Betapace] 80 mg PO BID - Discharge Packet/Instructions *Diet: A regular diet *Activity: Light activity. No driving until cleared by Dr. Porter *Pain Management/Treatment: Tylenol as needed for pain *Wound Care: Not applicable Additional Instructions: Outpatient speech therapy. Check for blood pressure once a day. Call if top number of blood pressure is less than 100 or higher than 160 *Expected Signs/Symptoms: Mild fatigue *Notify Physician if: Call 911 if you have symptoms of a stroke such as new onset weakness, slurred speech, sudden vision changes or any other concerning symptoms. Notify your doctor or call 911 if you have difficulties with bleeding or confusion. *During Business Hours Contact: Call Dr. Porter's office *After Business Hours Contact: [phone] and have your doctor paged *Pending Lab/Results: No Pending Lab - Referrals/Follow Up *Referrals/Follow Up: Simón Robb MD [Physician] - 2 Weeks Leslie Porter DO [Family Provider] - 1 Week - Patient Handouts Patient Handouts: Transient Ischemic Attack (GEN), A-fib (Atrial Fibrillation) (GEN) - Dismissal Complete Discharge Instructions are:: Complete Physician Narrative - Narrative Attestation Narrative: Date: 06/15/17 Time: 8790
== END 2017-06-15 16:20 | disposition home or self-care (01) | DRG 69 ==
LOC: ED 23:31 → MED 06-14 01:28
PROVIDERS: ADMIT Internal Medicine; ATTEND Internal Medicine